=== PATIENT | male | born 1980 | race Caucasian/White ===

== ENCOUNTER 2016-10-21 16:00 | Emergency (ER) | payer OTHER ==
[2016-10-21 16:16] VITALS: BP 137/65; PULSE 88; RESP 18; TEMP 98.1
--- NOTE | 2016-10-21 17:43 | ED ---
General Adult HPI - General Chief complaint: Extremity Problem,Nontraumatic Stated complaint: Arm Weakness Time Seen by Provider: 10/21/16 17:08 Source: patient, RN notes reviewed Mode of arrival: ambulatory Limitations: no limitations - History of Present Illness Initial comments: This is a 36-year-old male presents with right elbow pain 1 month. 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 Patient denies any fall or trauma to the area. Patient states he's had some pain to the lateral aspect of the right elbow that shoots up the arm. Patient denies any neck pain, radicular pain, numbness or tingling. Patient admits to some weakness but associates this weakness with the pain he feels when he picks up something heavy. Patient denies any recent fever, chills, shortness breath, chest pain, abdominal pain, nausea/vomiting/diarrhea, back pain, hematuria, headache, or visual changes, or any other complaints. - Related Data Home Medications Medication Instructions Recorded Confirmed No Known Home Medications [No 04/28/16 10/21/16 Known Home Medications] Allergies Allergy/AdvReac Type Severity Reaction Status Date / Time No Known Allergies Allergy Verified 10/21/16 17:04 Review of Systems ROS Statement: Those systems with pertinent positive or pertinent negative responses have been documented in the HPI. ROS Other: All systems not noted in ROS Statement are negative. Past Medical History Past Medical History: No Reported History Additional Past Medical History / Comment(s): umbilical hernia History of Any Multi-Drug Resistant Organisms: None Reported Past Surgical History: Hernia Repair, Orthopedic Surgery Additional Past Surgical History / Comment(s): nasal surgery as a child.,ORIF rt ankle, UMBILICAL HERNIA Past Anesthesia/Blood Transfusion Reactions: No Reported Reaction Past Psychological History: No Psychological Hx Reported Smoking Status: Current every day smoker Past Alcohol Use History: Rare Additional Past Alcohol Use History / Comment(s): started smoking 1994 Past Drug Use History: None Reported - Past Family History Mother Family Medical History: Hypertension Brother(s) Family Medical History: Diabetes Mellitus, Hypertension Father Family Medical History: Diabetes Mellitus General Exam - General Exam Comments Initial Comments: General: The patient is awake and alert, in no distress, and does not appear acutely ill. Neck: The neck is supple, there is no tenderness or JVD. Cardiovascular: There is a regular rate and rhythm. No murmur, rub or gallop is appreciated. Respiratory: Lungs are clear to auscultation, respirations are non-labored, breath sounds are equal. No wheezes, stridor, rales, or rhonchi. Musculoskeletal: Patient is tender along the lateral aspect of the right elbow and proximal forearm. Patient's pain is exacerbated with resisted pronation and resisted extension of the right forearm. Full range of motion, strength 5/ 5 and Sensation intact. Radial pulses 2+ bilaterally. Normal Emanuel's Test. Neurological: A&O x 3. CN II-XII intact, There are no obvious motor or sensory deficits. Coordination appears grossly intact. Speech is normal. Skin: Skin is warm and dry and no rashes or lesions are noted. Psychiatric: Normal mood and affect. Limitations: no limitations Course Vital Signs 10/21/16 10/21/16 16:13 17:52 Temperature 98.1 F 98.1 F Pulse Rate 88 88 Respiratory 18 18 Rate Blood Pressure 137/65 137/65 O2 Sat by Pulse 97 97 Oximetry Medical Decision Making - Medical Decision Making This is a 36-year-old male with right elbow pain. On physical exam patient is tender along the lateral aspect of the right elbow and proximal forearm. Patient's pain is exacerbated with resisted pronation and resisted extension of the right forearm. Full range of motion, strength 5/5 and Sensation intact. Radial pulses 2+ bilaterally. Discussed with patient that this is most likely lateral epicondylitis. As patient has no shoulder pain, no neck pain. All the symptoms are consistent with lateral epicondylitis due to pain in the lateral aspect of the right forearm/right elbow with resisted pronation and resisted extension. Patient did not fall or have any trauma to this area. Discussed the patient will need a tennis elbow brace. I discussed [id number] anti- inflammatories, rest and ice. I discussed return parameters. patient had no weakness during exam strength was 5/5. Discussed that patient should follow up with PCP in one to 2 days or return to the [facility] for any worsening symptoms or for any further concerns. Patient was receptive to this plan and patient will be discharged home. I discussed his case with attending physician Dr. bray who agrees the plan as stated above. Disposition Clinical Impression: Lateral epicondylitis of right elbow Disposition: HOME SELF-CARE Condition: Good Instructions: Tennis Elbow (ED) Additional Instructions: Please rest, ice, elevate and use tennis elbow brace for support. Over the counter anti-inflammatories such as ibuprofen for pain. May also use Tylenol. Please follow-up with family doctor in the next 2 days of symptoms have not improved. Please return to emergency room if the symptoms increase or worsen or for any other concerns. Referrals: None,Stated [Primary Care Provider] - 1-2 days Time of Disposition: 17:42
== END 2016-10-21 17:52 | disposition home or self-care (01) ==
LOC: EC 16:00
DX: M77.11 Lateral epicondylitis, right elbow (principal); F17.200 Nicotine dependence, unspecified, uncomplicated
CPT/HCPCS: 99283

== ENCOUNTER 2017-01-09 07:01 | Emergency (ER) | payer OTHER ==
[2017-01-09 07:12] VITALS: BP 135/84; PULSE 73; RESP 17; TEMP 96.7
--- NOTE | 2017-01-09 07:40 | ED ---
General Adult HPI - General Chief complaint: Dental/Oral Stated complaint: Dental Pain Time Seen by Provider: 01/09/17 07:32 Source: patient, RN notes reviewed Mode of arrival: ambulatory Limitations: no limitations - History of Present Illness Initial comments: Patient is a pleasant 36-year-old male presenting to the emergency Department with dentalgia. Symptoms have been present for 5 or 6 days. Patient has discomfort left lower frontal tooth. Patient did go to the urgent care and received antibiotics and pain pills. Tylenol 3 has not been helping. Patient is also taking Motrin. No fever. No swelling. No history of problems with this tooth previously. Patient does have an appointment Wednesday with a dentist. - Related Data Previous Rx's Medication Instructions Recorded Hydrocodone/Acetaminophen [[place] 1 each PO Q4HR PRN #12 tab 01/09/17 5-325] Allergies Allergy/AdvReac Type Severity Reaction Status Date / Time No Known Allergies Allergy Verified 10/21/16 17:04 Review of Systems ROS Statement: Those systems with pertinent positive or pertinent negative responses have been documented in the HPI. ROS Other: All systems not noted in ROS Statement are negative. Constitutional: Denies: fever Eyes: Denies: eye pain ENT: Reports: dental pain. Denies: ear pain Respiratory: Denies: dyspnea Cardiovascular: Denies: chest pain Endocrine: Denies: fatigue Gastrointestinal: Denies: nausea Genitourinary: Denies: urgency Musculoskeletal: Denies: back pain Skin: Denies: rash Neurological: Denies: weakness Past Medical History Past Medical History: No Reported History Additional Past Medical History / Comment(s): umbilical hernia History of Any Multi-Drug Resistant Organisms: None Reported Past Surgical History: Hernia Repair, Orthopedic Surgery Additional Past Surgical History / Comment(s): nasal surgery as a child.,ORIF rt ankle, UMBILICAL HERNIA Past Anesthesia/Blood Transfusion Reactions: No Reported Reaction Past Psychological History: No Psychological Hx Reported Smoking Status: Current every day smoker Past Alcohol Use History: Rare Additional Past Alcohol Use History / Comment(s): started smoking 1994 Past Drug Use History: None Reported - Past Family History Mother Family Medical History: Hypertension Brother(s) Family Medical History: Diabetes Mellitus, Hypertension Father Family Medical History: Diabetes Mellitus General Exam Limitations: no limitations General appearance: alert, in no apparent distress Head exam: Present: atraumatic Eye exam: Present: normal appearance ENT exam: Present: other (Poor dentition. Tenderness to the left lower first premolar. No signs of erythema or swelling.) Neck exam: Present: normal inspection Respiratory exam: Present: normal lung sounds bilaterally Cardiovascular Exam: Present: regular rate, normal rhythm Extremities exam: Present: normal inspection Neurological exam: Present: alert Psychiatric exam: Present: normal affect, normal mood Skin exam: Absent: rash Course Vital Signs 01/09/17 07:08 Temperature 96.7 F L Pulse Rate 73 Respiratory 17 Rate Blood Pressure 135/84 O2 Sat by Pulse 97 Oximetry Disposition Clinical Impression: Dentalgia Disposition: HOME SELF-CARE Condition: Stable Instructions: Toothache (ED) Additional Instructions: Please follow-up with dentist Wednesday as planned. Return for swelling, fevers, redness, worsening symptoms or other concerns. Prescriptions: Hydrocodone/Acetaminophen [[place] 5-325] 1 each PO Q4HR PRN #12 tab PRN Reason: Pain Referrals: None,Stated [Primary Care Provider] - 1-2 days Alyson Teran III, MD [STAFF PHYSICIAN] - 1-2 days
== END 2017-01-09 07:45 | disposition home or self-care (01) ==
LOC: EC 07:01
DX: K08.89 Other specified disorders of teeth and supporting structures (principal); F17.200 Nicotine dependence, unspecified, uncomplicated
CPT/HCPCS: 99282

== ENCOUNTER 2018-09-18 06:07 | Emergency (ER) | payer OTHER ==
[2018-09-18 06:43] VITALS: BP 111/71; PULSE 96; RESP 18; TEMP 97.8
--- NOTE | 2018-09-18 08:12 | ED ---
General Adult HPI - General Chief complaint: Skin/Abscess/Foreign Body Stated complaint: Rash Time Seen by Provider: 09/18/18 07:48 Source: patient, RN notes reviewed Mode of arrival: ambulatory Limitations: no limitations - History of Present Illness Initial comments: Patient is a 38-year-old male presenting to the emergency room today with a chief complaint of a rash. He does admit that he's had a spot to the left foot over the last several months. Patient states is not using any medicines for this. States at times she's noticed that it's itchy. He is unsure if it was related to something at work. 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 He states at times bleach does splash up. He states he did not have response anywhere else. He states over the last 2 days she's noticed that he's had some spots now to his lower extremities bilaterally. Patient denies any other complaints. Patient denies any recent fever, chills, shortness of breath, chest pain, back pain, abdominal pain, nausea or vomiting, constipation or diarrhea, headaches or visual changes, or any other complaints. - Related Data Previous Rx's Medication Instructions Recorded Hydrocodone/Acetaminophen [[place] 1 each PO Q4HR PRN #12 tab 01/09/17 5-325] Cephalexin [Keflex] 500 mg PO Q12HR 10 Days cap 09/18/18 Hydrocortisone Cream 1 applic TOPICAL TID #1 cream..g. 09/18/18 [Hydrocortisone 1% Cream] diphenhydrAMINE [Benadryl] 1 - 2 tab PO Q6HR PRN #30 capsule 09/18/18 predniSONE 40 mg PO DAILY 5 Days tab 09/18/18 Allergies Allergy/AdvReac Type Severity Reaction Status Date / Time No Known Allergies Allergy Verified 09/18/18 06:43 Review of Systems ROS Statement: Those systems with pertinent positive or pertinent negative responses have been documented in the HPI. ROS Other: All systems not noted in ROS Statement are negative. Past Medical History Past Medical History: No Reported History Additional Past Medical History / Comment(s): umbilical hernia History of Any Multi-Drug Resistant Organisms: None Reported Past Surgical History: Hernia Repair, Orthopedic Surgery Additional Past Surgical History / Comment(s): nasal surgery as a child.,ORIF rt ankle, UMBILICAL HERNIA Past Anesthesia/Blood Transfusion Reactions: No Reported Reaction Past Psychological History: No Psychological Hx Reported Smoking Status: Current every day smoker Past Alcohol Use History: Rare Past Drug Use History: None Reported - Past Family History Mother Family Medical History: Hypertension Brother(s) Family Medical History: Diabetes Mellitus, Hypertension Father Family Medical History: Diabetes Mellitus General Exam - General Exam Comments Initial Comments: General: The patient is awake and alert, in no distress, and does not appear acutely ill. Eye: There is normal conjunctiva bilaterally. No signs of icterus. Ears, nose, mouth and throat: There are moist mucous membranes and no oral lesions. Neck: The neck is supple, there is no tenderness or JVD. Musculoskeletal: Normal ROM, no tenderness. Strength 5/5. Sensation intact. Pulses equal bilaterally 2+. Neurological: A&O x 3. CN II-XII intact, There are no obvious motor or sensory deficits. Coordination appears grossly intact. Speech is normal. Skin: Patient does have flattened red areas to the lower extremity's bilaterally. Mild redness. No streaking. No drainage. Psychiatric: Cooperative, appropriate mood & affect, normal judgment. Limitations: no limitations Course Vital Signs 09/18/18 06:40 Temperature 97.8 F Pulse Rate 96 Respiratory 18 Rate Blood Pressure 111/71 O2 Sat by Pulse 96 Oximetry Medical Decision Making - Medical Decision Making Was discussed with the patient about contact dermatitis. Patient will be placed on steroids. Patient also be given a prescription for antibiotics of Keflex to cover for possible infection. Patient advised follow family doctor/ dermatology coming week if symptoms are not improving. Advised return if symptoms increase worsen. Disposition Clinical Impression: Contact dermatitis Disposition: HOME SELF-CARE Condition: Good Instructions: Contact Dermatitis (ED) Additional Instructions: Please use medication as discussed. 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 Please return to emergency room if the symptoms increase or worsen or for any other concerns. Prescriptions: Cephalexin [Keflex] 500 mg PO Q12HR 10 Days cap diphenhydrAMINE [Benadryl] 1 - 2 tab PO Q6HR PRN #30 capsule PRN Reason: Allergic Reaction Hydrocortisone Cream [Hydrocortisone 1% Cream] 1 applic TOPICAL TID #1 cream..g. predniSONE 40 mg PO DAILY 5 Days tab Is patient prescribed a controlled substance at d/c from ED?: No Referrals: None,Stated [Primary Care Provider] - 1-2 days Cayla Carter MD [STAFF PHYSICIAN] - 1-2 days Time of Disposition: 08:11
== END 2018-09-18 08:33 | disposition home or self-care (01) ==
LOC: EC 06:07
DX: L25.9 Unspecified contact dermatitis, unspecified cause (principal); F17.200 Nicotine dependence, unspecified, uncomplicated
CPT/HCPCS: 99282

== ENCOUNTER 2020-05-26 22:12 | Emergency (ER) | payer OTHER ==
--- NOTE | 2020-05-27 01:08 | US ---
EXAMINATION TYPE: US venous doppler duplex LE RT DATE OF EXAM: 05/27/2020 12:58 AM COMPARISON: NONE CLINICAL HISTORY: Right leg swelling, calf pain. Swelling. No hx DVT. No injury. SIDE PERFORMED: Right TECHNIQUE: The lower extremity deep venous system is examined utilizing real time linear array sonog leti with graded compression, doppler sonography and color-flow sonography. VESSELS IMAGED: External Iliac Vein (EIV) Common Femoral Vein Deep Femoral Vein Greater Saphenous Vein * Femoral Vein Popliteal Vein Small Saphenous Vein * Proximal Calf Veins (* superficial vessels) Right Leg: Negative for DVT IMPRESSION: No evidence of right leg deep vein thrombosis.
--- NOTE | 2020-05-27 01:15 | ED ---
Extremity Problem HPI - General Chief complaint: Extremity Problem,Nontraumatic Stated complaint: Feet Swelling Time Seen by Provider: 05/27/20 00:18 Source: patient Mode of arrival: ambulatory Limitations: no limitations - History of Present Illness Initial comments: 40-year-old male patient presents to the emergency department today for evaluation of swelling to the right lower extremity. Patient states that for the last several days he has been experiencing increased swelling to the right leg. States that he is also having a cramping sensation in the calf. States he's been keeping it elevated for the last couple of days and the swelling has improved somewhat. He denies any recent long car rides. Denies recent injury to the leg. Denies any history of DVT or use of hormonal medications. Patient states that the leg feels tight and does hurt when he ambulates. He denies any chest pain or shortness of breath. Denies palpitations. States that he is otherwise healthy does not take any medications. Does not see a primary care physician. He does have some swelling to the left leg but states this is chronic due to a remote injury. - Related Data Previous Rx's Medication Instructions Recorded Hydrocodone/Acetaminophen [[place] 1 each PO Q4HR PRN #12 tab 01/09/17 5-325] Cephalexin [Keflex] 500 mg PO Q12HR 10 Days cap 09/18/18 Hydrocortisone Cream 1 applic TOPICAL TID #1 cream..g. 09/18/18 [Hydrocortisone 1% Cream] diphenhydrAMINE [Benadryl] 1 - 2 tab PO Q6HR PRN #30 capsule 09/18/18 predniSONE [Deltasone] 40 mg PO DAILY 5 Days tab 09/18/18 Allergies Allergy/AdvReac Type Severity Reaction Status Date / Time No Known Allergies Allergy Verified 09/18/18 06:43 Review of Systems ROS Statement: Those systems with pertinent positive or pertinent negative responses have been documented in the HPI. ROS Other: All systems not noted in ROS Statement are negative. Past Medical History Past Medical History: No Reported History Additional Past Medical History / Comment(s): umbilical hernia History of Any Multi-Drug Resistant Organisms: None Reported Past Surgical History: Hernia Repair, Orthopedic Surgery Additional Past Surgical History / Comment(s): nasal surgery as a child.,ORIF rt ankle, UMBILICAL HERNIA Past Anesthesia/Blood Transfusion Reactions: No Reported Reaction Past Psychological History: No Psychological Hx Reported Past Alcohol Use History: Rare Past Drug Use History: None Reported - Past Family History Mother Family Medical History: Hypertension Brother(s) Family Medical History: Diabetes Mellitus, Hypertension Father Family Medical History: Diabetes Mellitus General Exam Limitations: no limitations General appearance: alert, in no apparent distress, other (This is a well- developed, well-nourished adult male patient in no acute distress. Vital signs upon presentation are temperature 98.5F, pulse 101, respirations 18, blood pressure 110/72, pulse ox 98% on room air.) Respiratory exam: Present: normal lung sounds bilaterally. Absent: respiratory distress, wheezes, rales, rhonchi, stridor Cardiovascular Exam: Present: regular rate, normal rhythm, normal heart sounds. Absent: systolic murmur, diastolic murmur, rubs, gallop, clicks GI/Abdominal exam: Present: soft, normal bowel sounds. Absent: distended, tenderness, guarding, rebound, rigid Extremities exam: Present: normal inspection, full ROM, normal capillary refill, other (There is generalized nonpitting edema noted to the right lower extrem ity. There is mild calf tenderness. No overlying erythema. Pedal and posttibial pulses 2+ and equal bilaterally. Skin is pink, warm, and dry. Refill less than 3 seconds). Absent: tenderness, pedal edema, joint swelling, calf tenderness Course Vital Signs 05/26/20 05/26/20 05/27/20 22:29 23:33 01:18 Temperature 98.5 F 97.9 F Pulse Rate 101 H 90 Respiratory 18 20 18 Rate Blood Pressure 110/72 139/72 O2 Sat by Pulse 98 99 Oximetry Medical Decision Making - Medical Decision Making 40-year-old male patient presented to the emergency department today for evaluation of right lower extremity edema. Patient had no injury. Physical examination revealed generalized nonpitting edema to the right lower extremity. No overlying erythema. Pulses and neurovascular status are intact. Ultrasound of the leg was obtained and was negative for DVT. We did discuss findings and results. We did discuss diet and duration of time on his feet at work as causes for his symptoms. He is instructed to elevate the legs and use compression stockings for symptoms relief. He will discharged to follow-up with the primary care physician for recheck in 1-2 days. Return parameters discussed in detail. He verbalizes understanding and agrees with this plan - Radiology Data Radiology results: report reviewed, image reviewed Ultrasound venous Doppler duplex of the right lower extremity was obtained. Report reviewed in its entirety. Impression by Dr. Hurley shows no evidence of right leg deep vein thrombosis. Disposition Clinical Impression: Swelling of lower extremity Disposition: HOME SELF-CARE Condition: Good Instructions (If sedation given, give patient instructions): Leg Edema (ED) Additional Instructions: Keep legs elevated. Follow-up with the primary care physician for recheck in 1- 2 days. Return to the emergency department immediately for any new, worsening, or concerning symptoms. Is patient prescribed a controlled substance at d/c from ED?: No Referrals: Darinel Bhakta [STAFF PHYSICIAN] - 1-2 days Time of Disposition: 01:15
[2020-05-27 01:24] VITALS: BP 139/72; PULSE 90; RESP 18; TEMP 97.9
== END 2020-05-27 01:37 | disposition home or self-care (01) ==
LOC: EC 22:12
DX: M79.89 Other specified soft tissue disorders (principal); Z98.890 Other specified postprocedural states
CPT/HCPCS: 99283

== ENCOUNTER 2020-06-13 13:00 | Emergency (ER) | payer OTHER ==
[2020-06-13 13:13] VITALS: TEMP 97.5
[2020-06-13] MEDS ORDERED: ONDANSETRON 4 MG/2 ML VIAL IVP STA (13:35)
[2020-06-13] MEDS ORDERED: SODIUM CHLORIDE 0.9% 1,000 ML IV STA (13:35)
--- NOTE | 2020-06-13 13:35 | ED ---
Abdominal Pain HPI - General Chief Complaint: Abdominal Pain Stated Complaint: Back and groin pain Time Seen by Provider: 06/13/20 13:35 Source: patient Mode of arrival: wheelchair Limitations: no limitations - History of Present Illness Initial Comments: Patient is 40-year-old male presenting to emergency department with a chief complaint of groin and back pain. Patient reports the symptoms began yesterday but have somewhat improved since yesterday. Patient reports the pain is exacerbated whenever he is straining. States she also felt a dull testicular pain particularly on his right side. Patient states his testicle was swollen yesterday but not today. Denies any nausea vomiting diarrhea. Denies any constipation. States he is able to as gas without issues. Denies previous history of inguinal hernia. Does have surgical history of umbilical hernia repair. - Related Data Home Medications Medication Instructions Recorded Confirmed No Known Home Medications 06/13/20 06/13/20 Allergies Allergy/AdvReac Type Severity Reaction Status Date / Time No Known Allergies Allergy Verified 06/13/20 14:22 Review of Systems ROS Statement: Those systems with pertinent positive or pertinent negative responses have been documented in the HPI. ROS Other: All systems not noted in ROS Statement are negative. Past Medical History Past Medical History: No Reported History Additional Past Medical History / Comment(s): umbilical hernia History of Any Multi-Drug Resistant Organisms: None Reported Past Surgical History: Hernia Repair, Orthopedic Surgery Additional Past Surgical History / Comment(s): nasal surgery as a child.,ORIF rt ankle, UMBILICAL HERNIA Past Anesthesia/Blood Transfusion Reactions: No Reported Reaction Past Psychological History: No Psychological Hx Reported Smoking Status: Current every day smoker Past Alcohol Use History: Rare Past Drug Use History: None Reported - Past Family History Mother Family Medical History: Hypertension Brother(s) Family Medical History: Diabetes Mellitus, Hypertension Father Family Medical History: Diabetes Mellitus General Exam Limitations: no limitations General appearance: alert, in no apparent distress, obese Head exam: Present: atraumatic, normocephalic, normal inspection Eye exam: Present: normal appearance, PERRL, EOMI Pupils: Present: normal accommodation ENT exam: Present: normal exam, normal oropharynx, mucous membranes moist, TM's normal bilaterally, normal external ear exam Neck exam: Present: normal inspection, full ROM. Absent: tenderness Respiratory exam: Present: normal lung sounds bilaterally. Absent: respiratory distress, wheezes, rales Cardiovascular Exam: Present: regular rate, normal rhythm, normal heart sounds GI/Abdominal exam: Present: soft, tenderness (Right inguinal pain. No palpable masses.). Absent: distended, guarding, rebound, rigid exam: Present: normal inspection. Absent: testicular tenderness, urethral discharge, scrotal swelling Extremities exam: Present: normal inspection, full ROM. Absent: tenderness Back exam: Present: normal inspection, full ROM. Absent: tenderness, CVA tenderness (R), CVA tenderness (L) Neurological exam: Present: alert, oriented X3, normal gait Psychiatric exam: Present: normal affect, normal mood Skin exam: Present: warm, dry, intact, normal color Course Vital Signs 06/13/20 06/13/20 06/13/20 13:10 14:29 16:32 Temperature 97.5 F L Pulse Rate 84 74 75 Respiratory 20 18 18 Rate Blood Pressure 114/77 119/68 127/54 O2 Sat by Pulse 97 99 99 Oximetry 06/13/20 17:40 Temperature Pulse Rate 77 Respiratory 18 Rate Blood Pressure 123/70 O2 Sat by Pulse 98 Oximetry Medical Decision Making - Medical Decision Making Patient is a 40-year-old male presenting to emergency Department with a chief complaint of right groin abdominal pain. On physical examination, I do suspect a concern for right inguinal hernia. Patient was offered analgesia, he declined initially. There is no testicular swelling or tenderness at this time. Although, he has been experiencing dull, achy testicular pain. Right groin ultrasound reveals scattered area of shotty adenopathy. No diagnostic evidence of a hernia. CT was recommended. CT reveals no signs of a hernia. also examined the patient advised for follow-up with a general surgeon. Strict return parameters were thoroughly discussed with patient was understanding and agreeable. Case discussed with physician. - Lab Data Result diagrams: 06/13/20 13:41 06/13/20 13:41 Lab Results 06/13/20 06/13/20 06/13/20 Range/Units 13:41 13:41 13:41 WBC 11.2 H (3.8-10.6) k/uL RBC 4.77 (4.30-5.90) m/uL Hgb 13.1 (13.0-17.5) gm/dL Hct 41.0 (39.0-53.0) % MCV 86.0 (80.0-100.0) fL MCH 27.4 (25.0-35.0) pg MCHC 31.9 (31.0-37.0) g/dL RDW 13.3 (11.5-15.5) % Plt Count 320 (150-450) k/uL Neutrophils % 69 % Lymphocytes % 21 % Monocytes % 6 % Eosinophils % 2 % Basophils % 0 % Neutrophils # 7.7 (1.3-7.7) k/uL Lymphocytes # 2.4 (1.0-4.8) k/uL Monocytes # 0.6 (0-1.0) k/uL Eosinophils # 0.2 (0-0.7) k/uL Basophils # 0.0 (0-0.2) k/uL Sodium 137 (137-145) mmol/L Potassium 4.0 (3.5-5.1) mmol/L Chloride 106 (98-107) mmol/L Carbon Dioxide 26 (22-30) mmol/L Anion Gap 5 mmol/L BUN 11 (9-20) mg/dL Creatinine 0.67 (0.66-1.25) mg/dL Est GFR (CKD-EPI)AfAm >90 (>60 ml/min/1.73 sqM) Est GFR (CKD-EPI)NonAf >90 (>60 ml/min/1.73 sqM) Glucose 110 H (74-99) mg/dL Calcium 9.0 (8.4-10.2) mg/dL Total Bilirubin 0.3 (0.2-1.3) mg/dL AST 32 (17-59) U/L ALT 40 (4-49) U/L Alkaline Phosphatase 88 (38-126) U/L Total Protein 7.0 (6.3-8.2) g/dL Albumin 3.8 (3.5-5.0) g/dL Amylase 37 (30-110) U/L Lipase 74 (23-300) U/L Urine Color Yellow Urine Appearance Clear (Clear) Urine pH 6.5 (5.0-8.0) Ur Specific [place] 1.018 (1.001-1.035) Urine Protein Negative (Negative) Urine Glucose (UA) Negative (Negative) Urine Ketones Negative (Negative) Urine Blood Negative (Negative) Urine Nitrite Negative (Negative) Urine Bilirubin Negative (Negative) Urine Urobilinogen <2.0 (<2.0) mg/dL Ur Leukocyte Esterase Negative (Negative) Disposition Clinical Impression: Abdominal pain, Right groin pain Disposition: HOME SELF-CARE Condition: Stable Instructions (If sedation given, give patient instructions): Groin Pain (ED) Additional Instructions: Follow-up with a general surgeon. Return to emergency department if symptoms worsen. Is patient prescribed a controlled substance at d/c from ED?: No Referrals: None,Stated [Primary Care Provider] - 1-2 days Clifford Dunn MD [Medical Doctor] - 1-2 days Time of Disposition: 17:16
[2020-06-13 14:09] LABS: Basophils % (A) 0 %; Eosinophils # (A) 0.2 k/uL (0-0.7); Eosinophils % (A) 2 %; HGB 13.1 gm/dL (13.0-17.5); Lymphocytes # (A) 2.4 k/uL (1.0-4.8); Lymphocytes % (A) 21 %; MCH 27.4 pg (25.0-35.0); MCHC 31.9 g/dL (31.0-37.0); Mean Platelet Volume 6.9; Monocytes # (A) 0.6 k/uL (0-1.0); Monocytes % (A) 6 %; Neutrophils # (A) 7.7 k/uL (1.3-7.7); Neutrophils % (A) 69 %; Platelet Count 320 k/uL (150-450); RBC 4.77 m/uL (4.30-5.90); RDW 13.3 % (11.5-15.5); WBC 11.2 k/uL (3.8-10.6)
[2020-06-13 14:19] LABS: ALT 40 U/L (4-49); AST 32 U/L (17-59); African American GFR (CKD) >90 (>60 ml/min/1.73 sqM); Albumin 3.8 g/dL (3.5-5.0); Alkaline Phosphatase 88 U/L (38-126); Amylase 37 U/L (30-110); Anion Gap 5 mmol/L; Blood Urea Nitrogen 11 mg/dL (9-20); Carbon Dioxide 26 mmol/L (22-30); Chloride 106 mmol/L (98-107); Glucose 110 mg/dL (74-99); Non-African American GFR(CKD) >90 (>60 ml/min/1.73 sqM); Sodium 137 mmol/L (137-145); Total Bilirubin 0.3 mg/dL (0.2-1.3)
[2020-06-13 14:30] VITALS: RESP 18
[2020-06-13 14:43] LABS: Appearance,Urine Clear (Clear); Bilirubin,Urine Negative (Negative); Blood,Urine Negative (Negative); Color,Urine Yellow; Glucose,Urine (UA) Negative (Negative); Ketones,Urine Negative (Negative); Leukocyte Esterase,Urine Negative (Negative); Nitrite,Urine Negative (Negative); PH, Urine 6.5 (5.0-8.0); Protein,Urine Negative (Negative); Specific Gravity,Urine 1.018 (1.001-1.035); Urobilinogen,Urine <2.0 mg/dL (<2.0)
--- NOTE | 2020-06-13 15:03 | US ---
EXAMINATION TYPE: US groin RT DATE OF EXAM: 06/13/2020 COMPARISON: NONE CLINICAL HISTORY: direcet vs indirect hernia. Right groin pain. No injury per patient. Right groin scanned. Prominent lymph nodes seen. Unable to determine presence of hernia. Valsalva performed. Contralateral images taken. IMPRESSION: 1. Scattered areas of shotty adenopathy. No diagnostic evidence of a hernia by ultrasound. Correlate with CT scan as clinically warranted.
--- NOTE | 2020-06-13 16:57 | CT ---
EXAMINATION TYPE: CT abdomen pelvis wo con DATE OF EXAM: 06/13/2020 COMPARISON: 05/21/2016 HISTORY: Right flank and groin pain. CT DLP: 2016.4 mGycm Automated exposure control for dose reduction was used. Lung bases are clear. There is no pleural effusion. Heart size is normal. There is no pericardial eff usion. Liver spleen pancreas gallbladder stomach appear intact. Bile ducts are not dilated. There is no adrenal mass. Kidneys have normal size. There is no hydronephrosis. Ureters are not dilat ed. There is no retroperitoneal adenopathy. Bladder distends smoothly. There is no inguinal hernia. T here is no free fluid in the pelvis. Appendix is posterior and appears normal. There is no mesenteric edema. There is no ascites or free air. There is no bowel obstruction. Lumbar vertebra have normal alignment. There is mild posterior disc bulging at L4-5. The bony pelvis is intact. Hip joints are intact. 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 IMPRESSION: No acute abnormality of the abdomen pelvis. There is clearing of the minimal atelectasis at the right lung base compared to old exam. Normal appendix. No evidence of renal stone or obstruction.
[2020-06-13] MEDS ORDERED: KETOROLAC 15 MG/ML 1 ML VIAL IVP STA (17:19)
[2020-06-13 17:42] VITALS: BP 123/70; PULSE 77
== END 2020-06-13 17:41 | disposition home or self-care (01) ==
LOC: EC 13:00
DX: R10.31 Right lower quadrant pain (principal); N50.811 Right testicular pain; R59.9 Enlarged lymph nodes, unspecified; F17.200 Nicotine dependence, unspecified, uncomplicated
CPT/HCPCS: 36415; 80053; 82150; 83690; 85025; 81003; 76882; 74176; 96374; 96361 ×4; 99284; J1885

== ENCOUNTER 2021-02-09 18:36 | Emergency (ER) | payer OTHER ==
[2021-02-09 18:40] VITALS: TEMP 97.9
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
[2021-02-09] MEDS ORDERED: SODIUM CHLORIDE 0.9% 1,000 ML IV ONE (19:04)
[2021-02-09] MEDS ORDERED: HYDROmorphone 1 MG/ML 1 ML SYRINGE IVP STA (19:05)
[2021-02-09 19:41] LABS: Basophils # (A) 0.1 k/uL (0-0.2); Basophils % (A) 0 %; Eosinophils # (A) 0.2 k/uL (0-0.7); Eosinophils % (A) 1 %; HCT 40.8 % (39.0-53.0); HGB 13.7 gm/dL (13.0-17.5); Lymphocytes # (A) 2.1 k/uL (1.0-4.8); Lymphocytes % (A) 10 %; MCH 28.6 pg (25.0-35.0); MCHC 33.6 g/dL (31.0-37.0); Mean Platelet Volume 6.8; Monocytes # (A) 0.9 k/uL (0-1.0); Monocytes % (A) 5 %; Neutrophils # (A) 16.5 k/uL (1.3-7.7); Neutrophils % (A) 83 %; Platelet Count 340 k/uL (150-450); RDW 13.6 % (11.5-15.5); WBC 19.9 k/uL (3.8-10.6)
[2021-02-09 19:50] LABS: ALT 43 U/L (4-49); AST 36 U/L (17-59); African American GFR (CKD) >90 (>60 ml/min/1.73 sqM); Albumin 4.3 g/dL (3.5-5.0); Alcohol <10 mg/dL; Alkaline Phosphatase 96 U/L (38-126); Anion Gap 7 mmol/L; Blood Urea Nitrogen 11 mg/dL (9-20); Calcium 9.6 mg/dL (8.4-10.2); Carbon Dioxide 28 mmol/L (22-30); Chloride 103 mmol/L (98-107); Glucose 119 mg/dL (74-99); Non-African American GFR(CKD) >90 (>60 ml/min/1.73 sqM); Potassium 4.3 mmol/L (3.5-5.1); Sodium 138 mmol/L (137-145); Total Bilirubin 0.4 mg/dL (0.2-1.3); Total Protein 7.4 g/dL (6.3-8.2)
--- NOTE | 2021-02-09 20:06 | XR ---
EXAMINATION TYPE: XR chest 1V portable DATE OF EXAM: 02/09/2021 COMPARISON: April 28, 2016 HISTORY: Pain after fall TECHNIQUE: Single view FINDINGS: There is no heart failure nor confluent pneumonic infiltrate. Costophrenic angles are clear . There is no pleural effusion or pneumothorax. IMPRESSION: No active cardiopulmonary disease. No change.
[2021-02-09 20:19] LABS: INR 0.9 (<1.2); Partial Thromboplastin Time 20.5 sec (22.0-30.0); Prothrombin Time 9.8 sec (9.0-12.0)
[2021-02-09 20:21] LABS: Appearance,Urine Clear (Clear); Bilirubin,Urine Negative (Negative); Blood,Urine Negative (Negative); Color,Urine Yellow; Glucose,Urine (UA) Negative (Negative); Ketones,Urine Negative (Negative); Leukocyte Esterase,Urine Negative (Negative); Nitrite,Urine Negative (Negative); Protein,Urine Trace (Negative); Specific Gravity,Urine 1.041 (1.001-1.035); Urobilinogen,Urine <2.0 mg/dL (<2.0)
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
[2021-02-09 20:31] LABS: Amphetamine Screen,Urine Not Detected (NotDetected); Barbiturate Screen,Urine Not Detected (NotDetected); Benzodiazepines Screen,Urine Not Detected (NotDetected); Cocaine Screen,Urine Not Detected (NotDetected); Methadone Screen, Urine Not Detected (NotDetected); Opiate Screen,Urine Not Detected (NotDetected); Oxycodone Screen, Urine Not Detected (NotDetected); Phencyclidine Screen,Urine Not Detected (NotDetected); Tricyclic Antidepressant,Urine Not Detected (NotDetected); Urn Cannabinoid Scrn Not Detected (NotDetected)
[2021-02-09 21:04] VITALS: BP 129/75; PULSE 84; RESP 16
== END 2021-02-09 21:15 | disposition home or self-care (01) ==
LOC: EC 18:36
DX: S20.222A Contusion of left back wall of thorax, initial encounter (principal); F17.200 Nicotine dependence, unspecified, uncomplicated; W17.89XA Other fall from one level to another, initial encounter
CPT/HCPCS: 36415; 86900; 86901; 80053; 85025; 85610; 85730; 86850; 81003; 80306; 71045; 71260; 74177; 99284; 96374; 96361; G0480; J1170; Q9967; 80320

== ENCOUNTER 2021-02-12 13:04 | Emergency (ER) | payer OTHER ==
[2021-02-12 13:20] VITALS: RESP 18; TEMP 97.9
[2021-02-12] MEDS ORDERED: KETOROLAC 15 MG/ML 1 ML VIAL IM STA (14:32)
--- NOTE | 2021-02-12 14:35 | XR ---
EXAMINATION TYPE: PA chest and bilateral rib series, 9 views DATE OF EXAM: 02/12/2021 COMPARISON: 02/09/2021 HISTORY: 40-year-old male pain and shortness of breath TECHNIQUE: PA and lateral views FINDINGS: Heart limits of normal in size. Peribronchial cuffing and interstitial prominence unchanged from prio r. No pleural effusion. No displaced rib fracture on either side. IMPRESSION: Correlate with patient's symptoms to exclude underlying bronchitis, chronic asthma, or early atypical pneumonia. No displaced rib fracture seen on either side.
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
[2021-02-12 15:31] VITALS: BP 123/74; PULSE 74
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
[2021-02-12] MEDS ORDERED: ACET/COD 300 MG/30 MG STARTER PACK 6 TAB BTL PO STA (16:27)
== END 2021-02-12 16:34 | disposition home or self-care (01) ==
LOC: EC 13:04
DX: S29.011A Strain of muscle and tendon of front wall of thorax, initial encounter (principal); R10.12 Left upper quadrant pain; F17.200 Nicotine dependence, unspecified, uncomplicated; V86.55XA Driver of 3- or 4- wheeled all-terrain vehicle (ATV) injured in nontraffic accident, initial encounter; Y92.410 Unspecified street and highway as the place of occurrence of the external cause
CPT/HCPCS: 71111; 76705; 76770; 99284; 96372; J1885

== ENCOUNTER → 2021-04-24 | Outpatient (CLI) | payer OTHER ==
--- NOTE | 2021-04-24 12:11 | XR ---
EXAMINATION TYPE: XR chest 2V DATE OF EXAM: 04/24/2021 COMPARISON: 02/09/2021 TECHNIQUE: PA and lateral views submitted. HISTORY: Pleural effusion FINDINGS: Bilateral pleural thickening with subsegmental changes involving the left upper and lower lobe. Heart size stable. No overt failure or pneumothorax. IMPRESSION: 1. Bilateral pleural thickening with left upper lobe and lower lobe subsegmental atelectasis or scarr ing
--- NOTE | 2021-04-24 12:12 | XR ---
EXAMINATION TYPE: XR shoulder limited LT DATE OF EXAM: 04/24/2021 COMPARISON: NONE HISTORY: Pain TECHNIQUE: Three views are submitted. FINDINGS: The osseous structures are intact. There is no acute fracture or dislocation. The AC joint is maint ained. Subsegmental linear changes left upper lobe with a pleural-based thickening. Likely in the ba sis of scar or atelectasis. IMPRESSION: 1. No acute process.
== END | disposition home or self-care (01) ==
LOC: RADXRMAIN 11:40
PROVIDERS: ATTEND Family Medicine
DX: J92.9 Pleural plaque without asbestos (principal); M25.512 Pain in left shoulder
CPT/HCPCS: 71046

== ENCOUNTER → 2021-09-09 | Outpatient (CLI) | payer OTHER ==
--- NOTE | 2021-09-09 09:49 | XR ---
EXAMINATION TYPE: XR chest 2V DATE OF EXAM: 09/09/2021 COMPARISON: Chest x-ray 04/24/2021 HISTORY: J92.9 pleural plaque without asbestos TECHNIQUE: Frontal and lateral views of the chest are obtained. FINDINGS: There is no focal air space opacity, pleural effusion, or pneumothorax seen. The cardiac silhouette size is within normal limits. The osseous structures are intact. Bilateral pleural thick ening along the lateral chest margins is again seen. IMPRESSION: Findings are similar to prior exam. Pleural thickening may be better evaluated with ches t CT.
== END | disposition home or self-care (01) ==
LOC: RADXRMAIN 09:12
PROVIDERS: ATTEND Family Medicine
DX: J92.9 Pleural plaque without asbestos (principal)
CPT/HCPCS: 71046

== ENCOUNTER → 2021-10-12 | Outpatient (CLI) | payer OTHER ==
--- NOTE | 2021-10-12 08:32 | CT ---
EXAMINATION TYPE: CT chest wo con DATE OF EXAM: 10/12/2021 COMPARISON: 02/09/2021 HISTORY: Pleural plaque w/o asbestos CT DLP: 1054 mGycm. Automated Exposure Control for Dose Reduction was Utilized. TECHNIQUE: CT scan of the thorax is performed without IV contrast. FINDINGS: LUNGS: The lungs are grossly clear, there is no concerning parenchymal mass or nodule identified. T here is no pleural effusion or pneumothorax seen. The tracheobronchial tree is patent. There are mil d areas of smooth pleural thickening without nodularity or calcification. MEDIASTINUM: Lack of IV contrast is noted to limit evaluation for mediastinal and especially hilar ad enopathy. There are no definitive greater than 1 cm hilar or mediastinal lymph nodes. No cardiomega ly or pericardial effusion is seen. OTHER: No additional significant abnormality is seen. IMPRESSION: Mild areas of pleural thickening without calcification or nodularity. No other significan t abnormality seen.
== END | disposition home or self-care (01) ==
LOC: RADCTMAIN 07:39
PROVIDERS: ATTEND Family Medicine
DX: J92.9 Pleural plaque without asbestos (principal)
CPT/HCPCS: 71250

== ENCOUNTER → 2022-05-12 | Outpatient (CLI) | payer OTHER ==
--- NOTE | 2022-05-13 07:20 | XR ---
EXAMINATION TYPE: XR chest 2V DATE OF EXAM: 05/12/2022 4:36 PM COMPARISON: Chest radiographs from 09/09/2021, CT chest 10/12/2021. TECHNIQUE: XR chest 2V Frontal and lateral views of the chest. CLINICAL INDICATION:Male, 42 years old with history of R06.00 Dyspnea; FINDINGS: Lungs/Pleura: There is no evidence of pleural effusion, focal consolidation, or pneumothorax. Similar bilateral pleural thickening on the lateral chest margins. Pulmonary vascularity: Unremarkable. Heart/mediastinum: Cardiomediastinal silhouette is unremarkable. Musculoskeletal: No acute osseous pathology. IMPRESSION: Similar mild areas of pleural thickening without evidence of acute cardiopulmonary process.
== END | disposition home or self-care (01) ==
LOC: RADXRMAIN 16:23
PROVIDERS: ATTEND Nurse Practitioner Family
DX: J92.9 Pleural plaque without asbestos (principal)
CPT/HCPCS: 71046

== ENCOUNTER 2022-06-11 05:07 | Inpatient (IN) | payer OTHER ==
[2022-06-11] MEDS ORDERED: MORPHINE SULFATE 4 MG/ML SYRINGE IVP STA (05:23)
[2022-06-11] MEDS ORDERED: SODIUM CHLORIDE 0.9% 500 ML 500 ML IV ONE (05:23)
[2022-06-11] MEDS ORDERED: cefTRIAXone IN SWFI 1,000 MG/10 ML SYRINGE IVP STA (05:26)
--- NOTE | 2022-06-11 05:51 | ED ---
General Adult HPI - General Chief complaint: Skin/Abscess/Foreign Body Stated complaint: Cellulitis right leg Time Seen by Provider: 06/11/22 05:09 Source: patient, RN notes reviewed, old records reviewed Mode of arrival: wheelchair Limitations: no limitations - History of Present Illness Initial comments: 42-year-old male presents for evaluation of right leg pain and swelling. Patient was recently admitted to outside hospital for about one week with right leg cellulitis. He states he went home on oral antibiotics but has continued pain and swelling and increased erythema. He is a nondiabetic. He's had no measured fever at home. - Related Data Previous Rx's Medication Instructions Recorded Cyclobenzaprine [Flexeril] 10 mg PO TID #20 tab 02/12/21 Ketorolac [Toradol] 10 mg PO Q6HR #15 tab 02/12/21 Allergies Allergy/AdvReac Type Severity Reaction Status Date / Time No Known Allergies Allergy Verified 06/11/22 05:12 Review of Systems ROS Statement: Those systems with pertinent positive or pertinent negative responses have been documented in the HPI. ROS Other: All systems not noted in ROS Statement are negative. Past Medical History Past Medical History: No Reported History Additional Past Medical History / Comment(s): umbilical hernia History of Any Multi-Drug Resistant Organisms: None Reported Past Surgical History: Hernia Repair, Orthopedic Surgery Additional Past Surgical History / Comment(s): nasal surgery as a child.,ORIF rt ankle, UMBILICAL HERNIA Past Anesthesia/Blood Transfusion Reactions: No Reported Reaction Past Psychological History: No Psychological Hx Reported Smoking Status: Current every day smoker Past Alcohol Use History: None Reported Past Drug Use History: None Reported - Past Family History Mother Family Medical History: Hypertension Brother(s) Family Medical History: Diabetes Mellitus, Hypertension Father Family Medical History: Diabetes Mellitus General Exam Limitations: no limitations General appearance: alert, in no apparent distress Head exam: Present: atraumatic, normocephalic Eye exam: Present: normal appearance, PERRL ENT exam: Present: mucous membranes dry Neck exam: Present: normal inspection Respiratory exam: Present: normal lung sounds bilaterally. Absent: respiratory distress, wheezes Cardiovascular Exam: Present: normal rhythm, tachycardia GI/Abdominal exam: Present: soft. Absent: distended, tenderness, guarding Extremities exam: Present: pedal edema, other (erythema, warmth, soft tissue swelling throughout the right lower extremity from the foot to the knee, no crepitus) Course Vital Signs 06/11/22 05:12 Temperature 98.2 F Pulse Rate 105 H Respiratory 16 Rate Blood Pressure 133/79 O2 Sat by Pulse 98 Oximetry Medical Decision Making - Medical Decision Making 42-year-old male for reevaluation of right leg cellulitis. His cellulitis is quite extensive, painful to the touch. There is warmth and erythema. Patient is afebrile but tachycardic upon arrival. Antibiotics are initiated after blood culture and laboratory tests are obtained. White blood cell count of 18. patient will be admitted to internal medicine with infectious disease on consult for recurrent cellulitis. - Lab Data Result diagrams: 06/11/22 06:00 Lab Results 06/11/22 Range/Units 06:00 WBC 18.0 H (3.8-10.6) k/uL RBC 4.15 L (4.30-5.90) m/uL Hgb 11.3 L (13.0-17.5) gm/dL Hct 36.2 L (39.0-53.0) % MCV 87.2 (80.0-100.0) fL MCH 27.2 (25.0-35.0) pg MCHC 31.2 (31.0-37.0) g/dL RDW 14.0 (11.5-15.5) % Plt Count 435 (150-450) k/uL MPV 7.1 Neutrophils % 79 % Lymphocytes % 13 % Monocytes % 6 % Eosinophils % 1 % Basophils % 0 % Neutrophils # 14.2 H (1.3-7.7) k/uL Lymphocytes # 2.4 (1.0-4.8) k/uL Monocytes # 1.0 (0-1.0) k/uL Eosinophils # 0.2 (0-0.7) k/uL Basophils # 0.1 (0-0.2) k/uL Disposition Clinical Impression: Cellulitis Disposition: ADMITTED IP TO THIS HOSP Condition: Stable Is patient prescribed a controlled substance at d/c from ED?: No Referrals: Carlos Turk DO [Primary Care Provider] - 1-2 days Time of Disposition: 05:51
[2022-06-11] MEDS ORDERED: ACETAMINOPHEN TAB 325 MG TAB PO PRN (05:52)
[2022-06-11] MEDS ORDERED: NALOXONE 0.4 MG/ML 1 ML VIAL IV PRN ×2 (05:52→11:25)
[2022-06-11] MEDS ORDERED: VANCOMYCIN IV PER PHARMACY 1 EACH MISC MISCELLANE PRN (06:14)
[2022-06-11 06:25] LABS: Basophils # (A) 0.1 k/uL (0-0.2); Basophils % (A) 0 %; Eosinophils # (A) 0.2 k/uL (0-0.7); Eosinophils % (A) 1 %; HCT 36.2 % (39.0-53.0); HGB 11.3 gm/dL (13.0-17.5); Lymphocytes # (A) 2.4 k/uL (1.0-4.8); Lymphocytes % (A) 13 %; MCH 27.2 pg (25.0-35.0); MCHC 31.2 g/dL (31.0-37.0); MCV 87.2 fL (80.0-100.0); Mean Platelet Volume 7.1; Monocytes % (A) 6 %; Neutrophils # (A) 14.2 k/uL (1.3-7.7); Neutrophils % (A) 79 %; Platelet Count 435 k/uL (150-450); RBC 4.15 m/uL (4.30-5.90)
[2022-06-11] MEDS ORDERED: PIPERACILLIN-TAZOBACTAM 3.375 GM in SODIUM CHLORIDE 0.9% 100 ML IVPB STA (06:32)
[2022-06-11 06:34] LABS: Partial Thromboplastin Time 24.4 sec (22.0-30.0); Prothrombin Time 10.5 sec (9.0-12.0)
[2022-06-11] MEDS ORDERED: VANCOMYCIN 2,250 MG in SODIUM CHLORIDE 0.9% 500 ML 500 ML IVPB ONE (07:00)
[2022-06-11 07:01] LABS: ALT 40 U/L (4-49); AST 33 U/L (17-59); African American GFR (CKD) >90 (>60 ml/min/1.73 sqM); Albumin 3.4 g/dL (3.5-5.0); Alkaline Phosphatase 86 U/L (38-126); Anion Gap 12 mmol/L; Blood Urea Nitrogen 8 mg/dL (9-20); Calcium 8.8 mg/dL (8.4-10.2); Carbon Dioxide 24 mmol/L (22-30); Chloride 101 mmol/L (98-107); Glucose 139 mg/dL (74-99); Non-African American GFR(CKD) >90 (>60 ml/min/1.73 sqM); Potassium 4.2 mmol/L (3.5-5.1); Sodium 137 mmol/L (137-145); Total Bilirubin 0.5 mg/dL (0.2-1.3); Total Protein 7.4 g/dL (6.3-8.2)
[2022-06-11] MEDS: SODIUM CHLORIDE 0.9% 1,000 ML IV SCH ×3 (09:15→20:30)
--- NOTE | 2022-06-11 09:17 | US ---
EXAMINATION TYPE: US venous doppler duplex LE RT DATE OF EXAM: 06/11/2022 9:08 AM COMPARISON: Right lower extremity venous ultrasound report May 27, 2020. Downtime so direct correl ation not possible. CLINICAL HISTORY: rt lower extremity erythema. Right calf redness. Failed outpatient cellulitis reza tment. SIDE PERFORMED: Right TECHNIQUE: The lower extremity deep venous system is examined utilizing real time linear array sonog leti with graded compression, doppler sonography and color-flow sonography. VESSELS IMAGED: Common Femoral Vein Deep Femoral Vein Greater Saphenous Vein * Femoral Vein Popliteal Vein Small Saphenous Vein * Proximal Calf Veins- limited visualization (* superficial vessels) Right Leg: Negative for DVT Grayscale, color doppler, spectral doppler imaging performed of the deep veins of the right lower ext remity. There is normal flow, compressibility, vascular waveforms. IMPRESSION: No ultrasound evidence for acute DVT in the right lower extremity. Enlarged right groin lymph nodes are present and presumed reactive. Follow-up advised if does not resolve.
--- NOTE | 2022-06-11 11:24 | P.HPIM ---
History of Present Illness H&P Date: 06/11/22 Chief Complaint: Right lower extremity redness History of present illness; Patient is a 42-year-old gentleman with no significant past medical history who presented to the ER because of right leg pain and swelling. Patient was recently admitted at [facility] and was treated with IV antibiotics for a week and discharged on oral Keflex. Patient stated that couple of days after discharge she started noticing worsening right lower leg pain and swelling. Denied any fever or chills. Patient denied any weeping of his right leg. Because his worsening right leg pain and swelling, he came to the ER of [facility]. Initial blood work done showed patient to have elevated white count of 18k. Patient was started on IV antibiotics and was admitted to medicine team. REVIEW OF SYSTEMS: CONSTITUTIONAL: No fever, no malaise, no fatigue. HEENT: No recent visual problems or hearing problems. Denied any sore throat. CARDIOVASCULAR: No chest pain, orthopnea, PND, no palpitations, no syncope. PULMONARY: No shortness of breath, no cough, no hemoptysis. GASTROINTESTINAL: No diarrhea, no nausea, no vomiting, no abdominal pain. NEUROLOGICAL: No headaches, no weakness, no numbness. HEMATOLOGICAL: Denies any bleeding or petechiae. GENITOURINARY: Denies any burning micturition, frequency, or urgency. MUSCULOSKELETAL/RHEUMATOLOGICAL: Denies any joint pain,. Complaining of right leg pain and swelling ENDOCRINE: Denies any polyuria or polydipsia. The rest of the 14-point review of systems is negative. PHYSICAL EXAMINATION: GENERAL: The patient is alert and oriented x3, not in any acute distress. Well developed, well nourished. HEENT: Pupils are round and equally reacting to light. EOMI. No scleral icterus. No conjunctival pallor. Normocephalic, atraumatic. No pharyngeal erythema. No thyromegaly. CARDIOVASCULAR: S1 and S2 present. No murmurs, rubs, or gallops. PULMONARY: Chest is clear to auscultation, no wheezing or crackles. ABDOMEN: Soft, nontender, nondistended, normoactive bowel sounds. No palpable organomegaly. MUSCULOSKELETAL: No joint swelling or deformity. EXTREMITIES: No cyanosis,. Right lower extremity erythema seen, NEUROLOGICAL: Gross neurological examination did not reveal any focal deficits. SKIN: No rashes. Assessment Right lower extremity cellulitis Leukocytosis Obesity Plan; Monitor vital signs Monitor CBC ordered blood cultures Our ultrasound of right lower extremity Continue IV vancomycin Consult ID Daily labs DVT prophylaxis: Past Medical History Past Medical History: No Reported History Additional Past Medical History / Comment(s): umbilical hernia History of Any Multi-Drug Resistant Organisms: None Reported Past Surgical History: Hernia Repair, Orthopedic Surgery Additional Past Surgical History / Comment(s): nasal surgery as a child.,ORIF rt ankle, UMBILICAL HERNIA Past Anesthesia/Blood Transfusion Reactions: No Reported Reaction Past Psychological History: No Psychological Hx Reported Smoking Status: Current every day smoker Past Alcohol Use History: None Reported Past Drug Use History: None Reported - Past Family History Mother Family Medical History: Hypertension Brother(s) Family Medical History: Diabetes Mellitus, Hypertension Father Family Medical History: Diabetes Mellitus Medications and Allergies Home Medications Medication Instructions Recorded Confirmed Type Cephalexin [Keflex] 500 mg PO Q6HR 06/11/22 06/11/22 History Allergies Allergy/AdvReac Type Severity Reaction Status Date / Time No Known Allergies Allergy Verified 06/11/22 06:40 Physical Exam Vitals: Vital Signs Temp Pulse Pulse Resp BP BP Pulse Ox 06/11/22 08:35 98.1 F 82 22 115/69 97 06/11/22 08:00 82 22 06/11/22 07:10 74 15 129/69 99 06/11/22 05:12 98.2 F 105 H 16 133/79 98 Intake and Output 06/10/22 06/11/22 06/11/22 22:59 06:59 14:59 Other: Voiding Method Toilet Weight 145.15 kg Results CBC & Chem 7: 06/11/22 06:00 06/11/22 06:00 Labs: Abnormal Lab Results - Last 24 Hours (Table) 06/11/22 06/11/22 Range/Units 06:00 06:00 WBC 18.0 H (3.8-10.6) k/uL RBC 4.15 L (4.30-5.90) m/uL Hgb 11.3 L (13.0-17.5) gm/dL Hct 36.2 L (39.0-53.0) % Neutrophils # 14.2 H (1.3-7.7) k/uL BUN 8 L (9-20) mg/dL Glucose 139 H (74-99) mg/dL Albumin 3.4 L (3.5-5.0) g/dL
[2022-06-11] MEDS: MORPHINE SULFATE 4 MG/ML SYRINGE IV PRN ×2 (11:30→18:50)
[2022-06-11] MEDS: HYDROcodone/APAP 5-325MG 1 EACH TAB PO PRN ×2 (15:11→20:30)
[2022-06-11] MEDS: VANCOMYCIN 2,000 MG in SODIUM CHLORIDE 0.9% 500 ML 500 ML IVPB SCH (20:25)
--- NOTE | 2022-06-11 23:15 | P.CONS ---
History of Present Illness - Reason for Consult Consult date: 06/11/22 - History of Present Illness Patient is a 42-year male who was recently admitted at [facility] and the patient was treated for right lower extremity cellulitis patient was stabilized and subsequently discharged home on oral Keflex patient now presenting to the [facility] with increasing swelling redness right lower extremity along with pain patient denies high-grade fever or any chills has been complaining of pain to be more of a sharp in nature intensity is about 7 out of 10 no radiation with associated swelling redness patient currently do not have any open wound or any drainage patient on presentation to the hospital was afebrile and no fever have been recorded subsequently patient did have white count of 18,000 with a left shift patient did have a lower extremity Doppler which was negative for DVT patient was started on vancomycin has been admitted to hospital infectious disease was consulted for further management of antibiotic therapy Past Medical History Past Medical History: No Reported History Additional Past Medical History / Comment(s): umbilical hernia History of Any Multi-Drug Resistant Organisms: None Reported Past Surgical History: Hernia Repair, Orthopedic Surgery Additional Past Surgical History / Comment(s): nasal surgery as a child.,ORIF rt ankle, UMBILICAL HERNIA Past Anesthesia/Blood Transfusion Reactions: No Reported Reaction Past Psychological History: No Psychological Hx Reported Smoking Status: Current every day smoker Past Alcohol Use History: None Reported Past Drug Use History: None Reported - Past Family History Mother Family Medical History: Hypertension Brother(s) Family Medical History: Diabetes Mellitus, Hypertension Father Family Medical History: Diabetes Mellitus Medications and Allergies Home Medications Medication Instructions Recorded Confirmed Type Cephalexin [Keflex] 500 mg PO Q6HR 06/11/22 06/11/22 History Allergies Allergy/AdvReac Type Severity Reaction Status Date / Time No Known Allergies Allergy Verified 06/11/22 06:40 Physical Exam Vitals: Vital Signs Temp Pulse Pulse Resp BP BP Pulse Ox 06/11/22 08:35 98.1 F 82 22 115/69 97 06/11/22 07:10 74 15 129/69 99 06/11/22 05:12 98.2 F 105 H 16 133/79 98 Intake and Output 06/10/22 06/11/22 06/11/22 22:59 06:59 14:59 Other: Weight 145.15 kg Results CBC & Chem 7: 06/11/22 06:00 06/11/22 06:00 Labs: Abnormal Lab Results - Last 24 Hours (Table) 06/11/22 06/11/22 Range/Units 06:00 06:00 WBC 18.0 H (3.8-10.6) k/uL RBC 4.15 L (4.30-5.90) m/uL Hgb 11.3 L (13.0-17.5) gm/dL Hct 36.2 L (39.0-53.0) % Neutrophils # 14.2 H (1.3-7.7) k/uL BUN 8 L (9-20) mg/dL Glucose 139 H (74-99) mg/dL Albumin 3.4 L (3.5-5.0) g/dL Assessment and Plan Plan: 1patient presented to hospital with right lower extremity cellulitis failing outpatient oral Keflex therapy question of possible community associated MRSA. 2patient to continue vancomycin pharmacy to dose, in view of failure of oral Keflex patient may need outpatient antibiotic therapy on discharge this was discussed with the rn case management. We will follow on clinical condition and cultures to further adjust medication if needed Thank you for this consultation will follow this patient along with you Time with Patient: Greater than 30
[2022-06-12] MEDS: VANCOMYCIN 2,000 MG in SODIUM CHLORIDE 0.9% 500 ML 500 ML IVPB SCH ×2 (03:37→11:18)
[2022-06-12] MEDS: HYDROcodone/APAP 5-325MG 1 EACH TAB PO PRN ×3 (03:37→21:15)
[2022-06-12 05:03] LABS: African American GFR (CKD) >90 (>60 ml/min/1.73 sqM); Non-African American GFR(CKD) >90 (>60 ml/min/1.73 sqM)
[2022-06-12] MEDS: SODIUM CHLORIDE 0.9% 1,000 ML IV SCH ×3 (06:05→22:25)
[2022-06-12] MEDS: MORPHINE SULFATE 4 MG/ML SYRINGE IV PRN (07:13)
[2022-06-12] MEDS ORDERED: VANCOMYCIN TROUGH DUE 1 EACH MISC MISCELLANE ONE (18:00)
--- NOTE | 2022-06-12 22:42 | P.PN ---
Subjective Progress Note Date: 06/12/22 Principal diagnosis: Right lower extremity cellulitis Patient is a 42-year-old male recently admitted at [facility] with right lower extremity cellulitis stabilized discharged home on oral Keflex subsequently presented to medical Hospital with worsening swelling and redness admitted to hospital with cellulitis failing outpatient therapy. On today's evaluation that is and 06/12/2022, the patient denies having any fever or any chills, the patient still has significant swelling and redness right lower extremity mention no improvement in the symptoms, patient denies having any chest pain shortness of breath or cough no abdominal pain or diarrhea Objective - Vital Signs Vital signs: Vital Signs Temp 98.3 F 06/12/22 07:00 Pulse 89 06/12/22 07:00 Resp 22 06/12/22 07:00 BP 121/64 06/12/22 07:00 Pulse Ox 95 06/12/22 07:00 FiO2 Intake & Output 06/11/22 06/12/22 06/12/22 18:59 06:59 18:59 Intake Total 300 180 Balance 300 180 Weight 145.15 kg Intake: Oral 300 180 Other: Voiding Method Toilet Toilet # Voids 3 2 - Exam GENERAL DESCRIPTION: Middle-age male lying in bed in no distress RESPIRATORY SYSTEM: Unlabored breathing , decreased breath sounds at bases HEART: S1 S2 regular rate and rhythm , ABDOMEN: Soft , no tenderness EXTREMITIES: Right lower extremity with diffuse swelling and redness no open wound or any drainage - Labs CBC & Chem 7: 06/11/22 06:00 06/12/22 04:37 Labs: Abnormal Lab Results - Last 24 Hours (Table) 06/12/22 Range/Units 04:42 Hemoglobin A1c 7.0 H (0.0-6.0) % Microbiology - Last 24 Hours (Table) 06/11/22 06:00 Blood Culture - Preliminary Blood No Growth after 24 hours Assessment and Plan (1) Cellulitis Current Visit: Yes Status: Acute Code(s): L03.90 - CELLULITIS, UNSPECIFIED SNOMED Code(s): 507155624 Plan: 1patient presented to hospital with right lower extremity cellulitis failing outpatient oral Keflex therapy question of possible community associated MRSA. 2patient did not show improvement with vancomycin over the last 24 hour antibiotic will be switched over to daptomycin will repeat a CBC and extremity markers with a.m. lab
[2022-06-13] MEDS: HYDROcodone/APAP 5-325MG 1 EACH TAB PO PRN ×4 (02:49→20:27)
[2022-06-13] MEDS: SODIUM CHLORIDE 0.9% 1,000 ML IV SCH ×3 (05:54→23:22)
[2022-06-13] MEDS: MORPHINE SULFATE 4 MG/ML SYRINGE IV PRN (06:08)
[2022-06-13 10:02] LABS: African American GFR (CKD) 144.7 (60.0-200.0); Anion Gap 8.7 mmol/L (10.00-18.00); BUN/Creat Ratio 12.5 Ratio (12.00-20.00); Blood Urea Nitrogen 7.5 mg/dL (9.0-27.0); C Reactive Protein 10.9 mg/dL (0.00-0.80); Calcium 8.7 mg/dL (8.7-10.3); Carbon Dioxide 26.3 mmol/L (20.0-27.5); Non-African American GFR(CKD) 124.9 (60.0-200.0); Potassium 4.3 mmol/L (3.5-5.5)
[2022-06-13 10:09] LABS: Basophils # (A) 0.05 X 10*3/uL (0.00-0.10); Basophils % (A) 0.4 %; Eosinophils # (A) 0.21 X 10*3/uL (0.04-0.35); Eosinophils % (A) 1.9 %; HCT 33.4 % (39.6-50.0); HGB 10.4 g/dL (13.0-17.0); Immature Grans, Automated 0.8 %; Lymphocytes # (A) 2.17 X 10*3/uL (0.90-5.00); Lymphocytes % (A) 19.4 %; MCH 27.4 pg (27.0-32.0); MCHC 31.1 g/dL (32.0-37.0); MCV 87.9 fL (80.0-97.0); Mean Platelet Volume 9.4 fL (9.5-12.2); Monocytes # (A) 0.88 X 10*3/uL (0.20-1.00); Monocytes % (A) 7.9 %; NRBC Per 100 WBC 0 /100 WBCS (0.0-0.0); Neutrophils # (A) 7.77 X 10*3/uL (1.80-7.70); Neutrophils % (A) 69.6 %; Platelet Count 412 X 10*3/uL (140-440); RDW 14.7 % (11.5-14.5); WBC 11.17 X 10*3/uL (4.50-10.00)
--- NOTE | 2022-06-13 12:12 | P.PN ---
Subjective Progress Note Date: 06/12/22 42-year-old gentleman with no significant past medical history who presented to the ER because of right leg pain and swelling. Patient was recently admitted at [facility] and was treated with IV antibiotics for a week and discharged on oral Keflex. Patient stated that couple of days after discharge she started noticing worsening right lower leg pain and swelling. Denied any fever or chills. Patient denied any weeping of his right leg. Because his worsening right leg pain and swelling, he came to the ER of [facility]. Initial blood work done showed patient to have elevated white count of 18k. Patient was started on IV antibiotics and was admitted to medicine team. Objective - Vital Signs Vital signs: Vital Signs Temp 98.3 F 06/12/22 07:00 Pulse 89 06/12/22 07:00 Resp 22 06/12/22 07:00 BP 121/64 06/12/22 07:00 Pulse Ox 95 06/12/22 07:00 FiO2 Intake & Output 06/11/22 06/12/22 06/12/22 18:59 06:59 18:59 Intake Total 300 180 Balance 300 180 Weight 145.15 kg Intake: Oral 300 180 Other: Voiding Method Toilet Toilet # Voids 3 2 - Exam GENERAL: The patient is alert and oriented x3, not in any acute distress. Well developed, well nourished. HEENT: Pupils are round and equally reacting to light. EOMI. No scleral icterus. No conjunctival pallor. Normocephalic, atraumatic. No pharyngeal erythema. No thyromegaly. CARDIOVASCULAR: S1 and S2 present. No murmurs, rubs, or gallops. PULMONARY: Chest is clear to auscultation, no wheezing or crackles. ABDOMEN: Soft, nontender, nondistended, normoactive bowel sounds. No palpable organomegaly. MUSCULOSKELETAL: No joint swelling or deformity. EXTREMITIES: No cyanosis,. Right lower extremity erythema seen, NEUROLOGICAL: Gross neurological examination did not reveal any focal deficits. SKIN: No rashes. - Labs CBC & Chem 7: 06/13/22 04:39 06/13/22 04:39 Labs: Abnormal Lab Results - Last 24 Hours (Table) 06/12/22 Range/Units 04:42 Hemoglobin A1c 7.0 H (0.0-6.0) % Microbiology - Last 24 Hours (Table) 06/11/22 06:00 Blood Culture - Preliminary Blood No Growth after 24 hours Assessment and Plan Assessment: Right lower extremity cellulitis Leukocytosis Obesity Plan; Monitor vital signs Monitor CBC ordered blood cultures Our ultrasound of right lower extremity Continue IV vancomycin Consult ID Daily labs
--- NOTE | 2022-06-13 12:28 | P.PN ---
Subjective Progress Note Date: 06/13/22 Principal diagnosis: Severe cellulitis right lower extremity Uncontrolled pain right lower extremity Acute on chronic anemia 42-year-old gentleman with no significant past medical history who presented to the ER because of right leg pain and swelling. Patient was recently admitted at [facility] and was treated with IV antibiotics for a week and discharged on oral Keflex. Patient stated that couple of days after discharge she started noticing worsening right lower leg pain and swelling. Denied any fever or chills. Patient denied any weeping of his right leg. Because his worsening right leg pain and swelling, he came to the ER of [facility]. Initial blood work done showed patient to have elevated white count of 18k. Patient was started on IV antibiotics and was admitted to medicine team. 06/13/2022 Patient is seen and evaluated in the room at bedside; denies having any fever or any chills, the patient still has significant swelling and redness right lower extremity mention no improvement in the symptoms, patient denies having any chest pain shortness of breath or cough no abdominal pain or diarrhea Labs are reviewed; WBC improved from 18.0 on admission down to 11.7, hemoglobin trended down to 11.3 on admission down to 10.4; no complaining of dark stools or rectal bleed Patient ID and has been switched to IV daptomycin since patient did not have clinical improvement in the past 24 hours - We will plan to place patient on Protonix, order stool occult blood; continue with current plan at this time; we will continue to monitor CBC, CMP and pro- calcitonin Objective - Vital Signs Vital signs: Vital Signs Temp 97.9 F 06/13/22 07:00 Pulse 88 06/13/22 07:00 Resp 16 06/13/22 07:00 BP 117/72 06/13/22 07:00 Pulse Ox 96 06/13/22 07:00 FiO2 Intake & Output 06/12/22 06/13/22 06/13/22 18:59 06:59 18:59 Intake Total 1520 118 Balance 1520 118 Intake: Intake, IV Titration 1340 Amount DAPTOmycin 400 mg In 50 Sodium Chloride 0.9% 50 ml @ 100 mls/hr IVPB Q24HR [facility] Rx#:[id number] Sodium Chloride 0.9% 1, 1040 000 ml @ 130 mls/hr IV . Q7H42M [facility] Rx#:[id number] Vancomycin 2,000 mg In 250 Sodium Chloride 0.9% 500 ml 500 ml @ 167 mls/hr IVPB Q8H [facility] Rx#: [id number] Oral 180 118 Other: # Voids 3 - Exam GENERAL: The patient is alert and oriented x3, not in any acute distress. Well developed, well nourished. HEENT: Pupils are round and equally reacting to light. EOMI. No scleral icterus. No conjunctival pallor. Normocephalic, atraumatic. No pharyngeal erythema. No thyromegaly. CARDIOVASCULAR: S1 and S2 present. No murmurs, rubs, or gallops. PULMONARY: Chest is clear to auscultation, no wheezing or crackles. ABDOMEN: Soft, nontender, nondistended, normoactive bowel sounds. No palpable organomegaly. MUSCULOSKELETAL: No joint swelling or deformity. EXTREMITIES: No cyanosis,. Right lower extremity erythema seen, NEUROLOGICAL: Gross neurological examination did not reveal any focal deficits. SKIN: No rashes. - Labs CBC & Chem 7: 06/13/22 04:39 06/13/22 04:39 Labs: Abnormal Lab Results - Last 24 Hours (Table) 06/13/22 06/13/22 Range/Units 04:39 04:39 WBC 11.17 H (4.50-10.00) X 10*3/uL RBC 3.80 L (4.40-5.60) X 10*6/uL Hgb 10.4 L (13.0-17.0) g/dL Hct 33.4 L (39.6-50.0) % MCHC 31.1 L (32.0-37.0) g/dL RDW 14.7 H (11.5-14.5) % MPV 9.4 L (9.5-12.2) fL Immature Gran # 0.09 H (0.00-0.04) X 10*3/uL Neutrophils # 7.77 H (1.80-7.70) X 10*3/uL Anion Gap 8.70 L (10.00-18.00) mmol/L BUN 7.5 L (9.0-27.0) mg/dL C-Reactive Protein 10.90 H (0.00-0.80) mg/dL Microbiology - Last 24 Hours (Table) 06/11/22 06:00 Blood Culture - Preliminary Blood No Growth after 48 hours Assessment and Plan Assessment: Right lower extremity cellulitis Leukocytosis Obesity Plan; Monitor vital signs Monitor CBC ordered blood cultures Our ultrasound of right lower extremity Continue IV vancomycin Consult ID Daily labs
--- NOTE | 2022-06-13 15:40 | P.PN ---
Subjective Progress Note Date: 06/13/22 Principal diagnosis: Right lower extremity cellulitis Patient is a 42-year-old male recently admitted at [facility] with right lower extremity cellulitis stabilized discharged home on oral Keflex subsequently presented to medical Hospital with worsening swelling and redness admitted to hospital with cellulitis failing outpatient therapy. On today's evaluation that is 06/13/2022, the patient continues to be afebrile, the patient is breathing comfortably on room air, the patient right lower extremity swelling and redness has decreased in intensity compared to yesterday, the patient denies having any chest pain shortness of breath or cough no abdomin al pain no diarrhea Objective - Vital Signs Vital signs: Vital Signs Temp 97.9 F 06/13/22 07:00 Pulse 88 06/13/22 07:00 Resp 16 06/13/22 07:00 BP 117/72 06/13/22 07:00 Pulse Ox 96 06/13/22 07:00 FiO2 Intake & Output 06/12/22 06/13/22 06/13/22 18:59 06:59 18:59 Intake Total 1520 118 Balance 1520 118 Intake: Intake, IV Titration 1340 Amount DAPTOmycin 400 mg In 50 Sodium Chloride 0.9% 50 ml @ 100 mls/hr IVPB Q24HR [facility] Rx#:[id number] Sodium Chloride 0.9% 1, 1040 000 ml @ 130 mls/hr IV . Q7H42M [facility] Rx#:[id number] Vancomycin 2,000 mg In 250 Sodium Chloride 0.9% 500 ml 500 ml @ 167 mls/hr IVPB Q8H [facility] Rx#: [id number] Oral 180 118 Other: # Voids 3 - Exam GENERAL DESCRIPTION: Middle-age male lying in bed in no distress RESPIRATORY SYSTEM: Unlabored breathing , decreased breath sounds at bases HEART: S1 S2 regular rate and rhythm , ABDOMEN: Soft , no tenderness EXTREMITIES: Right lower extremity swelling and redness has slightly decreased - Labs CBC & Chem 7: 06/13/22 04:39 06/13/22 04:39 Labs: Abnormal Lab Results - Last 24 Hours (Table) 06/13/22 06/13/22 Range/Units 04:39 04:39 WBC 11.17 H (4.50-10.00) X 10*3/uL RBC 3.80 L (4.40-5.60) X 10*6/uL Hgb 10.4 L (13.0-17.0) g/dL Hct 33.4 L (39.6-50.0) % MCHC 31.1 L (32.0-37.0) g/dL RDW 14.7 H (11.5-14.5) % MPV 9.4 L (9.5-12.2) fL Immature Gran # 0.09 H (0.00-0.04) X 10*3/uL Neutrophils # 7.77 H (1.80-7.70) X 10*3/uL Anion Gap 8.70 L (10.00-18.00) mmol/L BUN 7.5 L (9.0-27.0) mg/dL C-Reactive Protein 10.90 H (0.00-0.80) mg/dL Microbiology - Last 24 Hours (Table) 06/11/22 06:00 Blood Culture - Preliminary Blood No Growth after 48 hours Assessment and Plan (1) Cellulitis Current Visit: Yes Status: Acute Code(s): L03.90 - CELLULITIS, UNSPECIFIED SNOMED Code(s): 941031668 Plan: 1patient presented to hospital with right lower extremity cellulitis failing outpatient oral Keflex therapy question of possible community associated MRSA. 2patient seemed to have shown clinical improvement with daptomycin should be continued, plan is for midline on Wednesday and outpatient IV daptomycin 7-10 days depending upon clinical response Time with Patient: Less than 30
[2022-06-14] MEDS: HYDROcodone/APAP 5-325MG 1 EACH TAB PO PRN ×4 (01:24→20:47)
[2022-06-14] MEDS: SODIUM CHLORIDE 0.9% 1,000 ML IV SCH ×3 (05:45→15:57)
[2022-06-14 09:26] LABS: Basophils # (A) 0.04 X 10*3/uL (0.00-0.10); Basophils % (A) 0.4 %; Eosinophils # (A) 0.17 X 10*3/uL (0.04-0.35); Eosinophils % (A) 1.6 %; HCT 33.1 % (39.6-50.0); HGB 10.5 g/dL (13.0-17.0); Immature Grans, Automated 0.5 %; Lymphocytes # (A) 2.37 X 10*3/uL (0.90-5.00); Lymphocytes % (A) 22.9 %; MCH 27.3 pg (27.0-32.0); MCHC 31.7 g/dL (32.0-37.0); MCV 86.2 fL (80.0-97.0); Mean Platelet Volume 9.3 fL (9.5-12.2); Monocytes # (A) 0.76 X 10*3/uL (0.20-1.00); Monocytes % (A) 7.4 %; NRBC Per 100 WBC 0 /100 WBCS (0.0-0.0); Neutrophils # (A) 6.95 X 10*3/uL (1.80-7.70); Neutrophils % (A) 67.2 %; Platelet Count 440 X 10*3/uL (140-440); RBC 3.84 X 10*6/uL (4.40-5.60); RDW 14.5 % (11.5-14.5); WBC 10.34 X 10*3/uL (4.50-10.00)
[2022-06-14 09:43] LABS: African American GFR (CKD) 137.1 (60.0-200.0); Anion Gap 9.8 mmol/L (10.00-18.00); BUN/Creat Ratio 8.54 Ratio (12.00-20.00); Blood Urea Nitrogen 5.9 mg/dL (9.0-27.0); Carbon Dioxide 26.7 mmol/L (20.0-27.5); Non-African American GFR(CKD) 118.3 (60.0-200.0); Potassium 4.3 mmol/L (3.5-5.5)
[2022-06-14] MEDS ORDERED: FUROSEMIDE 10 MG/ML 4 ML VIAL IV STA (16:01)
--- NOTE | 2022-06-14 17:14 | P.PN ---
Subjective Progress Note Date: 06/14/22 Principal diagnosis: Right lower extremity cellulitis Patient is a 42-year-old male recently admitted at [facility] with right lower extremity cellulitis stabilized discharged home on oral Keflex subsequently presented to medical Hospital with worsening swelling and redness admitted to hospital with cellulitis failing outpatient therapy. On today's evaluation that is 06/14/2022, the patient remains to be afebrile, the patient is breathing comfortably on room air, the patient still have significant swelling to the right lower extremity redness is slightly decreased did not have any bone wound or any drainage denies any chest pain shortness of breath or cough no abdominal pain no diarrhea Objective - Vital Signs Vital signs: Vital Signs Temp 98.1 F 06/14/22 14:00 Pulse 90 06/14/22 14:00 Resp 18 06/14/22 14:00 BP 109/71 06/14/22 14:00 Pulse Ox 95 06/14/22 14:00 FiO2 Intake & Output 06/13/22 06/14/22 06/14/22 18:59 06:59 18:59 Intake Total 354 118 Balance 354 118 Intake: Oral 354 118 Other: # Voids 1 3 - Exam GENERAL DESCRIPTION: Middle-age male lying in bed in no distress RESPIRATORY SYSTEM: Unlabored breathing , decreased breath sounds at bases HEART: S1 S2 regular rate and rhythm , ABDOMEN: Soft , no tenderness EXTREMITIES: Right lower extremity swelling and redness has slightly decreased - Labs CBC & Chem 7: 06/14/22 05:34 06/14/22 05:34 Labs: Abnormal Lab Results - Last 24 Hours (Table) 06/14/22 06/14/22 Range/Units 05:34 05:34 WBC 10.34 H (4.50-10.00) X 10*3/uL RBC 3.84 L (4.40-5.60) X 10*6/uL Hgb 10.5 L (13.0-17.0) g/dL Hct 33.1 L (39.6-50.0) % MCHC 31.7 L (32.0-37.0) g/dL MPV 9.3 L (9.5-12.2) fL Immature Gran # 0.05 H (0.00-0.04) X 10*3/uL Anion Gap 9.80 L (10.00-18.00) mmol/L BUN 5.9 L (9.0-27.0) mg/dL BUN/Creatinine Ratio 8.54 L (12.00-20.00) Ratio Microbiology - Last 24 Hours (Table) 06/11/22 06:00 Blood Culture - Preliminary Blood No Growth after 72 hours Assessment and Plan (1) Cellulitis Current Visit: Yes Status: Acute Code(s): L03.90 - CELLULITIS, UNSPECIFIED SNOMED Code(s): 140721332 Plan: 1patient presented to hospital with right lower extremity cellulitis failing outpatient oral Keflex therapy question of possible community associated MRSA. 2patient did have significant swelling to the right leg more likely from the IV fluid the patient has been receiving for the last few days we will Hep-Lock his IV fluid given 1 dose of Lasix continue with the Samir wrap and daptomycin midline placement tomorrow for outpatient IV antibiotic Time with Patient: Less than 30
--- NOTE | 2022-06-14 18:32 | P.PN ---
Subjective Progress Note Date: 06/14/22 Principal diagnosis: Severe cellulitis right lower extremity Uncontrolled pain right lower extremity Acute on chronic anemia 42-year-old gentleman with no significant past medical history who presented to the ER because of right leg pain and swelling. Patient was recently admitted at [facility] and was treated with IV antibiotics for a week and discharged on oral Keflex. Patient stated that couple of days after discharge she started noticing worsening right lower leg pain and swelling. Denied any fever or chills. Patient denied any weeping of his right leg. Because his worsening right leg pain and swelling, he came to the ER of [facility]. Initial blood work done showed patient to have elevated white count of 18k. Patient was started on IV antibiotics and was admitted to medicine team. 06/13/2022 Patient is seen and evaluated in the room at bedside; denies having any fever or any chills, the patient still has significant swelling and redness right lower extremity mention no improvement in the symptoms, patient denies having any chest pain shortness of breath or cough no abdominal pain or diarrhea Labs are reviewed; WBC improved from 18.0 on admission down to 11.7, hemoglobin trended down to 11.3 on admission down to 10.4; no complaining of dark stools or rectal bleed Patient ID and has been switched to IV daptomycin since patient did not have clinical improvement in the past 24 hours - We will plan to place patient on Protonix, order stool occult blood; continue with current plan at this time; we will continue to monitor CBC, CMP and pro- calcitonin 06/14/2022 the patient remains to be afebrile, the patient is breathing comfortably on room air, the patient still have significant swelling to the right lower extremity redness is slightly decreased did not have any bone wound or any drainage denies any chest pain shortness of breath or cough no abdominal pain no diarrhea patient presented to hospital with right lower extremity cellulitis failing outpatient oral Keflex therapy question of possible community associated MRSA. patient did have significant swelling to the right leg more likely from the IV fluid the patient has been receiving for the last few days we will Hep-Lock his IV fluid given 1 dose of Lasix continue with the Samir wrap and daptomycin midline placement tomorrow for outpatient IV antibiotic Objective - Vital Signs Vital signs: Vital Signs Temp 98.0 F 06/14/22 08:00 Pulse 91 06/14/22 08:00 Resp 18 06/14/22 08:00 BP 111/77 06/14/22 08:00 Pulse Ox 95 06/14/22 08:00 FiO2 Intake & Output 06/13/22 06/14/22 06/14/22 18:59 06:59 18:59 Intake Total 354 118 Balance 354 118 Intake: Oral 354 118 Other: # Voids 1 3 - Exam GENERAL: The patient is alert and oriented x3, not in any acute distress. Well developed, well nourished. HEENT: Pupils are round and equally reacting to light. EOMI. No scleral icterus. No conjunctival pallor. Normocephalic, atraumatic. No pharyngeal erythema. No thyromegaly. CARDIOVASCULAR: S1 and S2 present. No murmurs, rubs, or gallops. PULMONARY: Chest is clear to auscultation, no wheezing or crackles. ABDOMEN: Soft, nontender, nondistended, normoactive bowel sounds. No palpable organomegaly. MUSCULOSKELETAL: No joint swelling or deformity. EXTREMITIES: No cyanosis,. Right lower extremity erythema seen, NEUROLOGICAL: Gross neurological examination did not reveal any focal deficits. SKIN: No rashes. - Labs CBC & Chem 7: 06/14/22 05:34 06/14/22 05:34 Labs: Abnormal Lab Results - Last 24 Hours (Table) 06/14/22 06/14/22 Range/Units 05:34 05:34 WBC 10.34 H (4.50-10.00) X 10*3/uL RBC 3.84 L (4.40-5.60) X 10*6/uL Hgb 10.5 L (13.0-17.0) g/dL Hct 33.1 L (39.6-50.0) % MCHC 31.7 L (32.0-37.0) g/dL MPV 9.3 L (9.5-12.2) fL Immature Gran # 0.05 H (0.00-0.04) X 10*3/uL Anion Gap 9.80 L (10.00-18.00) mmol/L BUN 5.9 L (9.0-27.0) mg/dL BUN/Creatinine Ratio 8.54 L (12.00-20.00) Ratio Microbiology - Last 24 Hours (Table) 06/11/22 06:00 Blood Culture - Preliminary Blood No Growth after 72 hours Assessment and Plan Assessment: Right lower extremity cellulitis Leukocytosis Obesity Plan; Monitor vital signs Monitor CBC ordered blood cultures Our ultrasound of right lower extremity Continue IV vancomycin Consult ID Daily labs
[2022-06-15] MEDS: HYDROcodone/APAP 5-325MG 1 EACH TAB PO PRN ×3 (01:51→12:04)
[2022-06-15 06:25] LABS: Basophils % (A) 0 %; Eosinophils # (A) 0.2 k/uL (0-0.7); Eosinophils % (A) 2 %; HCT 36.7 % (39.0-53.0); HGB 11.7 gm/dL (13.0-17.5); Hypochromasia Slight; Lymphocytes # (A) 2.3 k/uL (1.0-4.8); Lymphocytes % (A) 24 %; MCH 28.1 pg (25.0-35.0); MCHC 31.8 g/dL (31.0-37.0); MCV 88.5 fL (80.0-100.0); Monocytes # (A) 0.5 k/uL (0-1.0); Monocytes % (A) 5 %; Neutrophils # (A) 6.4 k/uL (1.3-7.7); Neutrophils % (A) 68 %; Platelet Count 553 k/uL (150-450); RBC 4.14 m/uL (4.30-5.90); WBC 9.4 k/uL (3.8-10.6)
[2022-06-15 07:23] LABS: African American GFR (CKD) >90 (>60 ml/min/1.73 sqM); Anion Gap 12 mmol/L; Blood Urea Nitrogen 10 mg/dL (9-20); Calcium 9.3 mg/dL (8.4-10.2); Carbon Dioxide 27 mmol/L (22-30); Chloride 99 mmol/L (98-107); Glucose 100 mg/dL (74-99); Non-African American GFR(CKD) >90 (>60 ml/min/1.73 sqM); Potassium 4.8 mmol/L (3.5-5.1); Sodium 138 mmol/L (137-145)
[2022-06-15 08:44] VITALS: BP 111/74; PULSE 82; RESP 18; TEMP 98
--- NOTE | 2022-06-15 12:55 | P.PN ---
Subjective Progress Note Date: 06/15/22 Principal diagnosis: Right lower extremity cellulitis Patient is a 42-year-old male recently admitted at [facility] with right lower extremity cellulitis stabilized discharged home on oral Keflex subsequently presented to medical Hospital with worsening swelling and redness admitted to hospital with cellulitis failing outpatient therapy. On today's evaluation that is 06/15/2022, the patient continues to be afebrile, the patient is breathing comfortably on room air, the patient right lower extremity swelling and redness has improved, the patient denies having any chest pain shortness of breath or cough no abdominal pain no diarrhea Objective - Vital Signs Vital signs: Vital Signs Temp 98.0 F 06/15/22 08:00 Pulse 82 06/15/22 08:00 Resp 18 06/15/22 08:00 BP 111/74 06/15/22 08:00 Pulse Ox 96 06/15/22 08:00 FiO2 Intake & Output 06/14/22 06/15/22 06/15/22 18:59 06:59 18:59 Intake Total 236 591 Balance 236 591 Intake: Oral 236 591 Other: Voiding Method Toilet # Voids 2 2 - Exam GENERAL DESCRIPTION: Middle-age male lying in bed in no distress RESPIRATORY SYSTEM: Unlabored breathing , decreased breath sounds at bases HEART: S1 S2 regular rate and rhythm , ABDOMEN: Soft , no tenderness EXTREMITIES: Right lower extremity swelling and redness has slightly decreased, no open wound or drainage - Labs CBC & Chem 7: 06/15/22 05:27 06/15/22 05:27 Labs: Abnormal Lab Results - Last 24 Hours (Table) 06/15/22 06/15/22 Range/Units 05:27 05:27 RBC 4.14 L (4.30-5.90) m/uL Hgb 11.7 L (13.0-17.5) gm/dL Hct 36.7 L (39.0-53.0) % Plt Count 553 H (150-450) k/uL Glucose 100 H (74-99) mg/dL Microbiology - Last 24 Hours (Table) 06/11/22 06:00 Blood Culture - Preliminary Blood No Growth after 96 hours Assessment and Plan (1) Cellulitis Current Visit: Yes Status: Acute Code(s): L03.90 - CELLULITIS, UNSPECIFIED SNOMED Code(s): 382330041 Plan: 1patient presented to hospital with right lower extremity cellulitis failing outpatient oral Keflex therapy question of possible community associated MRSA. 2patient right lower extremity swelling and redness has improved he will continue with IV daptomycin for another 10 days prescription was provided to the bottle caser midline and has been placed Time with Patient: Less than 30
--- NOTE | 2022-06-15 22:10 | P.DS ---
Providers Date of admission: 06/11/22 10:27 Attending physician: aDyami Branham Consults: 06/11/22 05:52 Consult Physician Routine Consulting Provider: Patricia Watson Consult Reason/Comments: Cellulitis Do you want consulting provider notified?: Yes Primary care physician: Carlos Turk [facility] Course: Diagnoses: Acute right leg cellulitis, improving morbid obesity with BMI of 48.7 Mild anemia, normochromic normocytic Hospital course: 42-year-old gentleman with no significant past medical history who presented to the ER because of right leg pain and swelling. Patient has been evaluated by infectious disease team, he was started on daptomycin, patient showed clinical interval improvement in his right leg cellulitis, patient also reports improvement. Patient denies any other complaints, no chest pain or dyspnea, no change in urine or bowel habits. No fever. Patient was cleared for discharge by ID team on 10 days of IV daptomycin. Midline was placed, hospice social worker consulted for discharge antibiotics Problems and management plan were discussed with the patient and he verbalized understanding and acceptance Patient was found stable and can be discharged home however he needs follow-up a s an outpatient. Patient was instructed to follow up with PCP Dr. Turk within one week and patient agrees Patient was instructed to follow up with Dr. Watson from infectious disease team in one week and patient agrees to perform a Appointments Physical exam Gen: patient is a AAOx3, no distress CVS: S1-S2, RRR, no murmur Lungs: B/L CTA, no wheezing Abdomen: soft, no distention, no tenderness, positive bowel sounds Extremity: no leg edema or induration. Improving right leg cellulitis Time spent more than 35 minutes Patient Condition at Discharge: Stable Plan - Discharge Summary Discharge Rx Participant: No New Discharge Prescriptions: New Acetaminophen Tab [Tylenol] 650 mg PO Q6HR PRN tab PRN Reason: Mild Pain Or Fever > 100.5 Discontinued Cephalexin [Keflex] 500 mg PO Q6HR Discharge Medication List Acetaminophen Tab [Tylenol] 650 mg PO Q6HR PRN tab 06/15/22 [Rx] Follow up Appointment(s)/Referral(s): [facility] [NON-STAFF] - 1 Week Carlos Turk DO [Primary Care Provider] - 1-2 days [facility], [REFERRING] - 1 Week Patricia Watson MD [STAFF PHYSICIAN] - 1 Week Patient Instructions/Handouts: Cellulitis (ED), Cellulitis (GEN) Activity/Diet/Wound Care/Special Instructions: Regular diet Activity is restricted till you see your doctor Discontinue midline once you are finished with your intravenous antibiotic Discharge Disposition: HOME WITH HOME HEALTH SERVICES
== END 2022-06-15 14:55 | disposition home health service (06) | DRG 603 ==
LOC: EC 05:07 → 6NMEDSUR 05:52 → OBSVTOIN 10:27
PROVIDERS: ADMIT Hospitalist; ATTEND Hospitalist
PROC: 05HF33Z Insertion of Infusion Device into Left Cephalic Vein, Percutaneous Approach (ICD-10-PCS; principal; 2022-06-15 14:50)
DX: L03.115 Cellulitis of right lower limb (principal); Z68.42 Body mass index [BMI] 45.0-49.9, adult; F17.200 Nicotine dependence, unspecified, uncomplicated; E66.01 Morbid (severe) obesity due to excess calories; D64.9 Anemia, unspecified; Z28.310 Unvaccinated for COVID-19; Z82.49 Family history of ischemic heart disease and other diseases of the circulatory system; Z83.3 Family history of diabetes mellitus
CPT/HCPCS: 36410; 36415; 76937; 80048; 80053; 82565; 83036; 83605; 85025; 85610; 85730; 86140; 87040; 96374; 96375; 99284

== ENCOUNTER 2023-02-02 07:41 | Emergency (ER) | payer OTHER ==
--- NOTE | 2023-02-02 08:17 | ED ---
Extremity Problem HPI - General Chief complaint: Extremity Problem,Nontraumatic Stated complaint: Lt foot swelling Time Seen by Provider: 02/02/23 07:58 Source: patient, RN notes reviewed Mode of arrival: ambulatory Limitations: no limitations - History of Present Illness Initial comments: Patient is a 42-year-old male presenting to the emergency room for evaluation of right lower extremity swelling. He reports chronic bilateral lower extremity swelling but is concerned regarding significant increase and right lower extremity swelling overnight with mild erythema in which she believes is due to swelling. He denies any pain, claudication, numbness or tingling. He denies any personal history of DVTs but does note family history of DVTs. He denies any recent travel or prolonged sedentary activity. He denies any recent trauma or wounds to his right lower extremity. He denies any other complaints or concerns including any chest pain, shortness of breath, abdominal pain, nausea, vomiting, headache, dizziness, fevers or chills. He does not have any significant past medical history with the exception of previously resolved right ankle fracture with ORIF. - Related Data Previous Rx's Medication Instructions Recorded Acetaminophen Tab [Tylenol] 650 mg PO Q6HR PRN tab 06/15/22 Allergies Allergy/AdvReac Type Severity Reaction Status Date / Time No Known Allergies Allergy Verified 02/02/23 07:49 Review of Systems ROS Statement: Those systems with pertinent positive or pertinent negative responses have been documented in the HPI. ROS Other: All systems not noted in ROS Statement are negative. Past Medical History Past Medical History: No Reported History Additional Past Medical History / Comment(s): umbilical hernia History of Any Multi-Drug Resistant Organisms: None Reported Past Surgical History: Hernia Repair, Orthopedic Surgery Additional Past Surgical History / Comment(s): nasal surgery as a child.,ORIF rt ankle, UMBILICAL HERNIA Past Anesthesia/Blood Transfusion Reactions: No Reported Reaction Past Psychological History: No Psychological Hx Reported Smoking Status: Current every day smoker Past Alcohol Use History: None Reported Past Drug Use History: None Reported - Past Family History Mother Family Medical History: Hypertension Brother(s) Family Medical History: Diabetes Mellitus, Hypertension Father Family Medical History: Diabetes Mellitus General Exam Limitations: no limitations General appearance: alert, in no apparent distress Head exam: Present: atraumatic, normocephalic, normal inspection Eye exam: Present: normal appearance, PERRL, EOMI. Absent: scleral icterus, conjunctival injection, periorbital swelling ENT exam: Present: normal exam, mucous membranes moist Neck exam: Present: normal inspection, full ROM Respiratory exam: Absent: respiratory distress, accessory muscle use Cardiovascular Exam: Present: regular rate GI/Abdominal exam: Absent: distended Extremities exam: Present: other (Large right inguinal lymph node with tenderness noted) Right Lower Leg exam: Present: full ROM, swelling, erythema (diffuse mild; no bright red induration). Absent: tenderness, laceration, ecchymosis, Homans' sign Back exam: Present: normal inspection Neurological exam: Present: alert, oriented X3, CN II-XII intact Psychiatric exam: Present: normal affect, normal mood Skin exam: Present: warm, dry, intact, erythema (right lower extremity as above) Course Vital Signs 02/02/23 02/02/23 02/02/23 07:47 09:00 10:40 Temperature 97.5 F L 98 F 98.1 F Pulse Rate 86 76 80 Respiratory 20 18 18 Rate Blood Pressure 117/72 115/78 119/81 O2 Sat by Pulse 99 98 98 Oximetry Medical Decision Making - Medical Decision Making Was pt. sent in by a medical professional or institution (, PA, W[facility] DOFFER, urgent care, hospital, or intermediate...) When possible be specific @ -No Did you speak to anyone other than the patient for history (EMS, parent, family, police, friend...)? What history was obtained from this source @ -No Did you review nursing and triage notes (agree or disagree)? Why? @ -I reviewed and agree with nursing and triage notes Were old charts reviewed (outside hosp., previous admission, EMS record, old EKG, old radiological studies, urgent care reports/EKG's, intermediate records)? Report findings @ -No old charts were reviewed Differential Diagnosis (chest pain, altered mental status, abdominal pain women, abdominal pain men, vaginal bleeding, weakness, fever, dyspnea, syncope, headache, dizziness, GI bleed, back pain, seizure, CVA, palpatations, mental health, musculoskeletal)? @ -Differential Musculoskeletal Muscular strain, contusion, ligament sprain, fracture, arthritis, septic arthritis, bursitis, cellulitis, muscle spasm, nerve compression, DVT, arterial occlusion, herpes zoster, electrolyte abnormality, tumor.... This is not meant to be in all inclusive list EKG interpreted by me (3pts min.). @ -None done X-rays interpreted by me (1pt min.). @ -None done CT interpreted by me (1pt min.). @ -None done U/S. @ -Ultrasound per radiologist report not interpreted by me demonstrates no DVT in the right lower extremity, right inguinal lymphadenopathy noted with right gr oin lymph node of 5.5 x 1.5 x 5.5 cm. What testing was considered but not performed or refused? (CT, X-rays, U/S, labs)? Why? @ -None What meds were considered but not given or refused? Why? @ -None Did you discuss the management of the patient with other professionals (professionals i.e. , PA, [facility] DOFFER, lab, RT, psych nurse, social media marketing analyst, lawyer criminal, teacher, ict help desk officer, case investigator)? Give summary @ -No Was smoking cessation discussed for >3mins.? @ -No Was critical care preformed (if so, how long)? @ -No Were there social determinants of health that impacted care today? How? (Homelessness, low income, unemployed, alcoholism, drug addiction, transportation, low edu. Level, literacy, decrease access to med. care, usp, rehab)? @ -No Was there de-escalation of care discussed even if they declined (Discuss DNR or withdrawal of care, Hospice)? DNR status @ -No What co-morbidities impacted this encounter? (DM, HTN, Smoking, COPD, CAD, Cancer, CVA, ARF, Chemo, Hep., AIDS, mental health diagnosis, sleep apnea, morbid obesity)? @ -Obesity and smoker Was patient admitted / discharged? Hospital course, mention meds given and route, prescriptions, significant lab abnormalities, going to OR and other pertinent info. @ -42-year-old male presenting to the emergency room concerns of increasing right lower extremity swelling with mild erythema. No other associated symptoms. No claudication or neuropathy. Will obtain Doppler of the right lower extremity along with laboratory studies of CBC, CMP and coags. No indication for medication administration at this time. Laboratory result CBC mild anemia hemoglobin 12.4, WBC and differential normal coags normal. CMP with creatinine slightly low 0.62 B1 normal echo with normal glucose elevated 101 liver enzymes and alkaline phosphatase normal. Ultrasound of right lower extremity demonstrates no DVT with very large right inguinal lymph node. Lower extremity swelling likely secondary to lymphedema. No evidence of cellulitis. No indication for further diagnostic testing or laboratory studi es at this time. Encouraged follow-up with primary care provider and if appropriate oncology for biopsy of right inguinal lymph node. Lymphedema care discussed. Questions and concerns answered. Return parameters to the emergency room discussed. Will discharge home in stable condition with conservative management for lymphedema to right lower extremity and follow-up with primary care provider for further evaluation of enlarged right inguinal lymph node. Undiagnosed new problem with uncertain prognosis? @ -Enlarged right inguinal lymph node Drug Therapy requiring intensive monitoring for toxicity (Heparin, Nitro, Insulin, Cardizem)? @ -No Were any procedures done? @ -No Diagnosis/symptom? @ -Right lower extremity lymphedema Acute, or Chronic, or Acute on Chronic? @ -Acute Uncomplicated (without systemic symptoms) or Complicated (systemic symptoms)? @ -Uncomplicated Side effects of treatment? @ -No Exacerbation, Progression, or Severe Exacerbation? @ -No Poses a threat to life or bodily function? How? (Chest pain, USA, MA, pneumonia, PE, COPD, DKA, ARF, appy, cholecystitis, CVA, Diverticulitis, Homicidal, Suicidal, threat to staff... and all critical care pts) @ -No Case discussed with Dr. Vega. - Lab Data Result diagrams: 02/02/23 08:12 02/02/23 08:12 Lab Results 02/02/23 02/02/23 02/02/23 Range/Units 08:12 08:12 08:12 WBC 9.1 (3.8-10.6) k/uL RBC 4.69 (4.30-5.90) m/uL Hgb 12.4 L (13.0-17.5) gm/dL Hct 40.6 (39.0-53.0) % MCV 86.5 (80.0-100.0) fL MCH 26.5 (25.0-35.0) pg MCHC 30.6 L (31.0-37.0) g/dL RDW 14.7 (11.5-15.5) % Plt Count 285 (150-450) k/uL MPV 7.6 Neutrophils % 70 % Lymphocytes % 20 % Monocytes % 6 % Eosinophils % 3 % Basophils % 0 % Neutrophils # 6.4 (1.3-7.7) k/uL Lymphocytes # 1.8 (1.0-4.8) k/uL Monocytes # 0.6 (0-1.0) k/uL Eosinophils # 0.2 (0-0.7) k/uL Basophils # 0.0 (0-0.2) k/uL PT 9.6 (9.0-12.0) sec INR 0.9 (<1.2) APTT 25.1 (22.0-30.0) sec Sodium 139 (137-145) mmol/L Potassium 4.6 (3.5-5.1) mmol/L Chloride 105 (98-107) mmol/L Carbon Dioxide 27 (22-30) mmol/L Anion Gap 7 mmol/L BUN 13 (9-20) mg/dL Creatinine 0.62 L (0.66-1.25) mg/dL Est GFR (CKD-EPI)AfAm >90 (>60 ml/min/1.73 sqM) Est GFR (CKD-EPI)NonAf >90 (>60 ml/min/1.73 sqM) Glucose 101 H (74-99) mg/dL Calcium 8.7 (8.4-10.2) mg/dL Total Bilirubin 0.4 (0.2-1.3) mg/dL AST 28 (17-59) U/L ALT 35 (4-49) U/L Alkaline Phosphatase 78 (38-126) U/L Total Protein 7.2 (6.3-8.2) g/dL Albumin 3.9 (3.5-5.0) g/dL - Radiology Data Radiology results: report reviewed, image reviewed Disposition Clinical Impression: Lymphedema of right lower extremity Disposition: HOME SELF-CARE Condition: Stable Instructions (If sedation given, give patient instructions): Lymphedema (ED) Additional Instructions: Compression and elevation of your right lower extremity is encouraged. Please follow-up with your primary care provider for further evaluation of enlarged lymph node in your right groin and possible oncology referral. Please return to the Emergency Department if symptoms worsen or any other concerns. Is patient prescribed a controlled substance at d/c from ED?: No Referrals: Carlos Turk DO [Primary Care Provider] - 1-2 days Quang Yusuf MD [STAFF PHYSICIAN] - 1-2 days Time of Disposition: 10:20
--- NOTE | 2023-02-02 08:50 | US ---
EXAMINATION TYPE: US venous doppler duplex LE RT DATE OF EXAM: 02/02/2023 8:45 AM COMPARISON: US 2021 CLINICAL INDICATION: Male, 42 years old with history of swelling; Right leg swelling SIDE PERFORMED: Right TECHNIQUE: The lower extremity deep venous system is examined utilizing real time linear array sonog leti with graded compression, doppler sonography and color-flow sonography. VESSELS IMAGED: Common Femoral Vein Deep Femoral Vein Greater Saphenous Vein * Femoral Vein Popliteal Vein Small Saphenous Vein * Proximal Calf Veins (* superficial vessels) Right Leg: Appears negative for DVT Right groin: 5.5 x 1.5 x 5.5cm lymph node IMPRESSION: 1. Grayscale, color doppler, spectral doppler imaging performed of the deep veins of the lower extrem ities. There is normal flow, compressibility, vascular waveforms. 2. Right inguinal lymphadenopathy correlate clinically.
[2023-02-02 09:20] LABS: Basophils % (A) 0 %; Eosinophils # (A) 0.2 k/uL (0-0.7); Eosinophils % (A) 3 %; HCT 40.6 % (39.0-53.0); HGB 12.4 gm/dL (13.0-17.5); Lymphocytes # (A) 1.8 k/uL (1.0-4.8); Lymphocytes % (A) 20 %; MCH 26.5 pg (25.0-35.0); MCHC 30.6 g/dL (31.0-37.0); MCV 86.5 fL (80.0-100.0); Mean Platelet Volume 7.6; Monocytes # (A) 0.6 k/uL (0-1.0); Monocytes % (A) 6 %; Neutrophils # (A) 6.4 k/uL (1.3-7.7); Neutrophils % (A) 70 %; Platelet Count 285 k/uL (150-450); RBC 4.69 m/uL (4.30-5.90); RDW 14.7 % (11.5-15.5); WBC 9.1 k/uL (3.8-10.6)
[2023-02-02 09:32] LABS: ALT 35 U/L (4-49); AST 28 U/L (17-59); African American GFR (CKD) >90 (>60 ml/min/1.73 sqM); Albumin 3.9 g/dL (3.5-5.0); Alkaline Phosphatase 78 U/L (38-126); Anion Gap 7 mmol/L; Blood Urea Nitrogen 13 mg/dL (9-20); Calcium 8.7 mg/dL (8.4-10.2); Carbon Dioxide 27 mmol/L (22-30); Chloride 105 mmol/L (98-107); Glucose 101 mg/dL (74-99); Non-African American GFR(CKD) >90 (>60 ml/min/1.73 sqM); Potassium 4.6 mmol/L (3.5-5.1); Sodium 139 mmol/L (137-145); Total Bilirubin 0.4 mg/dL (0.2-1.3); Total Protein 7.2 g/dL (6.3-8.2)
[2023-02-02 09:39] LABS: INR 0.9 (<1.2); Partial Thromboplastin Time 25.1 sec (22.0-30.0); Prothrombin Time 9.6 sec (9.0-12.0)
[2023-02-02 10:40] VITALS: RESP 18
[2023-02-02 10:42] VITALS: BP 119/81; PULSE 80; TEMP 98.1
== END 2023-02-02 10:42 | disposition home or self-care (01) ==
LOC: EC 07:41
DX: I89.0 Lymphedema, not elsewhere classified (principal); F17.200 Nicotine dependence, unspecified, uncomplicated
CPT/HCPCS: 36415; 80053; 85025; 85610; 85730; 99283

== ENCOUNTER → 2023-02-17 | Outpatient (CLI) | payer OTHER ==
--- NOTE | 2023-02-17 18:21 | CT ---
EXAMINATION TYPE: CT abdomen pelvis w con DATE OF EXAM: 02/17/2023 COMPARISON: 02/09/2021 INDICATION: Enlarged lymphnodes, swollen right leg DLP: 2060 mGycm, Automated exposure control for dose reduction was used. CONTRAST: 100 cc mL of Isovue 300. Study performed with Oral Contrast TECHNIQUE: Axial images were obtained from above the diaphragm to the pubic rami in the axial plane a t 5 mm thick sections. Reconstructed images are reviewed on the computer in the coronal plane. FINDINGS: Limited CT sections are obtained the lung bases. The lung bases are clear. CT ABDOMEN: No retrocrural enlarged lymphadenopathy is evident. A couple of small retrocrural lymph n odes may be present. There is a 1.0 cm lymph node within the mesentery. Series 3 image 50 Hazy increased densities within the mid mesentery. There are scattered small lymph nodes within the mesentery. Small periumbilical fa t-containing hernia may be present. Liver: Normal Spleen: Normal Pancreas: Normal Adrenal glands: The adrenal glands are normal. Gallbladder: Normal Kidneys: No masses are evident. No hydronephrosis is present. No cysts are present. Delayed images were obtained through the kidneys, which remain unremarkable. Aorta: Normal Inferior vena cava: Normal. Scattered small retro caval lymph nodes are present. CT PELVIS: Large bilateral inguinal lymph nodes are present. On the right this measures 2.3 cm. On th e left measure 1.7-1.3 cm. Scattered small iliac chain lymph nodes are present bilaterally. Small leif tty obturator canal may be present. Loops of bowel within the abdomen and pelvis are normal. There are loops of bowel which are incom pletely distended or lack oral contrast limiting their evaluation. Appendix: Normal as visualized. Urinary bladder: Normal. Genitourinary structures: Prostate appears unremarkable. Osseous structures: No suspicious lytic or sclerotic lesions. IMPRESSIONS: 1. There are enlarging nodes within the bilateral inguinal regions and a prominent lymph node within the mid mesentery. Additional shotty lymphadenopathy is scattered within the [id number]. Consider additional workup for lymphoma.
--- NOTE | 2023-02-18 12:27 | US ---
EXAMINATION TYPE: US st tissue neck DATE OF EXAM: 02/17/2023 COMPARISON: NONE CLINICAL INDICATION: Male, 42 years old with history of R590 LYMPH NODES; palpable felt by physician on left side of neck, no recent illness TECHNIQUE: Left neck US for lymph nodes FINDINGS: Senior Agricultural Assistant notes: Two lymph nodes directly adjacent to each other: 1. 1.2 x 1.3 x 0.6cm, 2. 1.2 x 1.2 x 0.6cm IMPRESSION: A couple borderline enlarged lymph nodes directly adjacent to each other along the left side of the n duran. Short axis measurement of 2 1.2 cm. These can be followed clinically. If further enlargement or suspicious clinical features develop, the area can be rescanned.
== END | disposition home or self-care (01) ==
LOC: RADCTMAIN 13:33
PROVIDERS: ATTEND Family Medicine
DX: R59.0 Localized enlarged lymph nodes (principal)
CPT/HCPCS: 76536; 74177; Q9967

== ENCOUNTER → 2023-03-03 | Outpatient (CLI) | payer OTHER ==
--- NOTE | 2023-03-04 07:58 | CT ---
EXAMINATION TYPE: CT chest w con DATE OF EXAM: 03/03/2023 COMPARISON: Chest CT October 12, 2021 and older study February 09, 2021 HISTORY: lymphadenopathy CT DLP: 727.6 mGycm. Automated Exposure Control for Dose Reduction was Utilized. TECHNIQUE: CT scan of the thorax is performed following with IV Contrast, patient injected with 100M L mL of Isovue 300. FINDINGS: LUNGS: The lungs remain grossly clear, there is no concerning parenchymal mass or nodule identified. There is no pleural effusion or pneumothorax seen. The tracheobronchial tree is patent. MEDIASTINUM: There are no greater than 1 cm hilar or mediastinal lymph nodes. No cardiomegaly or pe ricardial effusion is seen. OTHER: No additional significant abnormality is seen. IMPRESSION: No suspicious mass or adenopathy. No acute pulmonary process. No significant change from most recent CT.
== END | disposition home or self-care (01) ==
LOC: RADCTMAIN 16:42
PROVIDERS: ATTEND Internal Medicine Hematology & Oncology
DX: R59.0 Localized enlarged lymph nodes (principal)
CPT/HCPCS: 71260; Q9967

== ENCOUNTER 2023-03-09 09:14 | Day surgery (SDC) | payer OTHER ==
[2023-03-05 16:05] VITALS: BMI 51.7
[~2023-03-09 09:14] MED LIST: ACETAMINOPHEN TAB 500 MG TAB PO PRN; DEXAMETHASONE SOD PHOSPHATE 4 MG/ML 1 ML VIAL IV ONE; HEPARIN SODIUM,PORCINE/PF 5,000 UNIT/0.5 ML SYRINGE SQ PRN; LIDOCAINE 1% (10MG/ML) FOR IV START INTRADERMA PRN; METOCLOPRAMIDE 5 MG/ML 2 ML VIAL IVP PRN; ONDANSETRON 4 MG/2 ML VIAL IVP ONE; ceFAZolin 3 GM in SODIUM CHLORIDE 0.9% 100 ML IVPB PRN
--- NOTE | 2023-03-09 09:57 | P.GSHP ---
History of Present Illness H&P Date: 03/09/23 Chief Complaint: Lymphadenopathy This a 42-year-old male referred from Dr. Dickerson. Patient is undergoing workup for lymphadenopathy. Patient has a large bilateral inguinal lymph nodes. He presents today for right inguinal lymph node biopsy. Past Medical History Past Medical History: Sleep Apnea/CPAP/BIPAP Additional Past Medical History / Comment(s): hx covid x2, sleep apnea-unable to use machine, hx of cellulitis and lymphedema (8 months ago)., states currently right leg swelling- states 3 times the normal size for the last 3-4 weeks., states lump in groin on both sides. History of Any Multi-Drug Resistant Organisms: None Reported Past Surgical History: Hernia Repair, Orthopedic Surgery Additional Past Surgical History / Comment(s): nasal surgery as a child.,ORIF rt ankle, UMBILICAL HERNIA Past Anesthesia/Blood Transfusion Reactions: No Reported Reaction Past Psychological History: No Psychological Hx Reported Smoking Status: Current every day smoker Past Alcohol Use History: Occasional Additional Past Alcohol Use History / Comment(s): started smoking 1994, Smokes 1 1/ ppd., Past Drug Use History: None Reported Additional Drug Use History / Comment(s): occasional gummies or edibles. - Past Family History Mother Family Medical History: Hypertension Brother(s) Family Medical History: Diabetes Mellitus, Hypertension Father Family Medical History: Diabetes Mellitus Medications and Allergies Home Medications Medication Instructions Recorded Confirmed Type No Known Home Medications 03/05/23 03/05/23 History Allergies Allergy/AdvReac Type Severity Reaction Status Date / Time No Known Allergies Allergy Verified 03/05/23 15:41 Surgical - Exam Vital Signs Temp Pulse Resp BP Pulse Ox 97.9 F 71 20 115/71 98 03/09/23 09:54 03/09/23 09:54 03/09/23 09:54 03/09/23 09:54 03/09/23 09:54 - General Morbidly obese, BMI 52 well developed - Eyes PERRL - ENT normal pinna - Neck no masses - Respiratory normal expansion - Cardiovascular Rhythm: regular - Abdomen Abdomen: soft, non tender Enlarged right inguinal lymph nodes. There is a large lymph node mass palpated just below the right inguinal crease. Assessment and Plan Assessment: Right inguinal lymphadenopathy. Patient will undergo excisional lymph node biopsy. Patient is morbidly obese. I discussed the patient a risk of cellulitis/lymphocele risk due to increased obesity
[2023-03-09] MEDS: LACTATED RINGERS 1,000 ML IV SCH ×2 (10:25→12:54)
[2023-03-09] MEDS ORDERED: SUCCINYLCHOLINE CHLORIDE 200 MG/10 ML VIAL IV ONE (11:29)
[2023-03-09] MEDS ORDERED: MIDAZOLAM 2 MG/2 ML VIAL ONE (11:29)
[2023-03-09] MEDS ORDERED: LIDOCAINE 2% INJ 20 MG/ML (2 ML VIAL) ONE (11:29)
[2023-03-09] MEDS ORDERED: PHENYLEPHRINE-0.9% NACL SYG 1,000 MCG/10 ML SYRINGE ONE (11:29)
[2023-03-09] MEDS ORDERED: fentaNYL (PF) 50 MCG/ML 2 ML AMP ONE (11:29)
[2023-03-09] MEDS ORDERED: PROPOFOL 10 MG/ML 20 ML VIAL IV ONE (11:29)
[2023-03-09] MEDS ORDERED: BUPIVACAINE (PF) 0.25% 30 ML VIAL SQ ONE ×3 (11:32→12:19)
[2023-03-09] MEDS ORDERED: SODIUM CHLORIDE 0.9% 100 ML with ceFAZolin 3,000 MG IV ONE ×2 (11:35)
--- NOTE | 2023-03-09 12:27 | P.OP ---
Date of Procedure: 03/09/23 Preoperative Diagnosis: Right inguinal lymphadenopathy Postoperative Diagnosis: Right inguinal lymphadenopathy Procedure(s) Performed: Excisional biopsy right inguinal lymph node Anesthesia: MIKEL Surgeon: Darrel Mcgrath Estimated Blood Loss (ml): 10 Pathology: other (Lymph node) Condition: stable Disposition: PACU Description of Procedure: The patient's placed on the operating table in the supine position. He received IV sedation and then general endotracheal intubation. His right groin was prepped and draped usual sterile fashion. The patient had a large palpable lymph node just below the inguinal crease. A longitudinal skin incision was made over the area of the lymph node. Using blunt and sharp dissection with cautery and the LigaSure device the lymph node was dissected free. The specimens sent to pathology. There was no bleeding seen. A JARED drain was placed the deep space and brought out through a separate stab incision just above the incision.. There is no bleeding seen. The deep layer was closed with 0 Vicryl. Skin was closed interrupted 3-0 Monocryl suture. Dermabond was applied.
[2023-03-09 12:37] VITALS: TEMP 97
[2023-03-09] MEDS: HYDROmorphone 0.5 MG/0.5 ML SYRINGE IVP PRN ×2 (12:47→13:04)
[2023-03-09 14:06] VITALS: BP 106/57; PULSE 65; RESP 17
== END 2023-03-09 14:46 | disposition home or self-care (01) ==
LOC: OR 09:14
PROVIDERS: ATTEND Surgery
DX: R59.0 Localized enlarged lymph nodes (principal); F10.90 Alcohol use, unspecified, uncomplicated; F17.210 Nicotine dependence, cigarettes, uncomplicated; G47.33 Obstructive sleep apnea (adult) (pediatric); Z99.89 Dependence on other enabling machines and devices; Z86.16 Personal history of COVID-19; Z98.890 Other specified postprocedural states; Z82.49 Family history of ischemic heart disease and other diseases of the circulatory system; Z83.3 Family history of diabetes mellitus
CPT/HCPCS: 38531; 88305; J2250; J0330; J1100; J2405; J0690; J3010; J2370; J2704; J1170; J1644; J2001

== ENCOUNTER 2023-03-11 08:29 | Emergency (ER) | payer OTHER ==
[2023-03-11 08:36] VITALS: TEMP 97.9
--- NOTE | 2023-03-11 09:16 | ED ---
Recheck HPI - General Chief Complaint: Recheck/Abnormal Lab/Rx Stated Complaint: Drain Tube is Leaking Sent by Dr Mcgrath Time Seen by Provider: 03/11/23 08:50 Source: patient Mode of arrival: ambulatory Limitations: no limitations - History of Present Illness Initial Comments: patient is a 42-year-old man presenting to the emergency room at the direction of Dr. Tejeda's office for further evaluation of drainage around JARED insertion site which was placed after biopsy of a right groin lymph node by Dr. Cornell earlier in the week. He reports that the area has been draining down his leg serous-like fluid without any foul odor since earlier today. He contacted the office to advised him to present to the emergency room or come to the office in the afternoon during Dr. Cornell's office hours. He opted to present to the emergency room. He denies any other complaints or concerns including any redness, purulent drainage, slight tenderness, headache, dizziness, chest pain, shortness of breath, abdominal pain, nausea, vomiting, fevers or chills. - Related Data Previous Rx's Medication Instructions Recorded Acetaminophen Tab [Tylenol] 650 mg PO Q6H #30 tab 03/09/23 Ibuprofen [Motrin] 600 mg PO Q6HR PRN #40 tab 03/09/23 Allergies Allergy/AdvReac Type Severity Reaction Status Date / Time No Known Allergies Allergy Verified 03/05/23 15:41 Review of Systems ROS Statement: Those systems with pertinent positive or pertinent negative responses have been documented in the HPI. ROS Other: All systems not noted in ROS Statement are negative. Past Medical History Past Medical History: Sleep Apnea/CPAP/BIPAP Additional Past Medical History / Comment(s): hx covid x2, sleep apnea-unable to use machine, hx of cellulitis and lymphedema (8 months ago)., states currently right leg swelling- states 3 times the normal size for the last 3-4 weeks., states lump in groin on both sides. History of Any Multi-Drug Resistant Organisms: None Reported Past Surgical History: EPS, Hernia Repair, Orthopedic Surgery Additional Past Surgical History / Comment(s): nasal surgery as a child.,ORIF rt ankle, UMBILICAL HERNIA, biopsy of groin Past Anesthesia/Blood Transfusion Reactions: No Reported Reaction Past Psychological History: No Psychological Hx Reported Smoking Status: Current every day smoker Past Alcohol Use History: None Reported Past Drug Use History: None Reported - Past Family History Mother Family Medical History: Hypertension Brother(s) Family Medical History: Diabetes Mellitus, Hypertension Father Family Medical History: Diabetes Mellitus General Exam - General Exam Comments Initial Comments: GENERAL: No acute distress, well developed, well nourished. HEENT: Normocephalic, atraumatic. Pupils equal, round, reactive to light. Moist mucous membranes. LUNGS: No respiratory distress or use of accessory muscles. HEART: Regular rate.. ABDOMEN: Non-distended. soft nontender. Perineal region right sided drain and biopsy site as indicated below. BACK: Normal inspection. EXTREMITIES: No tenderness. Moves all extremities. NEUROLOGIC: Alert & oriented x 3. CN II-XII grossly intact. PSYCHIATRIC: Normal affect and behavior. DERMATOLOGIC: Biopsy site and JARED drain with significant amount of drain noted outside insertion site with JARED bulb unable to maintain suction. One suture intact, status post removal of drain and suture without complication. Dressing applied. Limitations: no limitations Course Vital Signs 03/11/23 03/11/23 08:31 09:05 Temperature 97.9 F Pulse Rate 89 79 Respiratory 18 20 Rate Blood Pressure 115/73 135/76 O2 Sat by Pulse 96 98 Oximetry Medical Decision Making - Medical Decision Making Was pt. sent in by a medical professional or institution (, PA, GASTROINTESTINAL TECHNICIAN, urgent care, hospital, or long-term...) When possible be specific @ -Yes directed to present to the emergency room by Dr. Mcgrath's office Did you speak to anyone other than the patient for history (EMS, parent, family, police, friend...)? What history was obtained from this source @ -No Did you review nursing and triage notes (agree or disagree)? Why? @ -I reviewed and agree with nursing and triage notes Were old charts reviewed (outside hosp., previous admission, EMS record, old EKG, old radiological studies, urgent care reports/EKG's, long-term records)? Report findings @ -No old charts were reviewed Differential Diagnosis (chest pain, altered mental status, abdominal pain women, abdominal pain men, vaginal bleeding, weakness, fever, dyspnea, syncope, headache, dizziness, GI bleed, back pain, seizure, CVA, palpatations, mental health, musculoskeletal)? @ -not applicable EKG interpreted by me (3pts min.). @ -None done X-rays interpreted by me (1pt min.). @ -None done CT interpreted by me (1pt min.). @ -None done U/S interpreted by me (1pt. min.). @ -None done What testing was considered but not performed or refused? (CT, X-rays, U/S, labs)? Why? @ -None What meds were considered but not given or refused? Why? @ -None Did you discuss the management of the patient with other professionals (professionals i.e. DrAlvin, PA, GASTROINTESTINAL TECHNICIAN, lab, RT, psych nurse, social security assessor, rn wound, teacher, electronic intelligence officer, shoe caser)? Give summary @ -Yes, spoke with Dr. Mcgrath regarding Asians presentation and recommendation to present to the emergency room by his office. He advised to complete the removal of JARED drain and apply dressing and have patient follow-up in his office as scheduled. Was smoking cessation discussed for >3mins.? @ -No Was critical care preformed (if so, how long)? @ -No Were there social determinants of health that impacted care today? How? (Homelessness, low income, unemployed, alcoholism, drug addiction, transportation, low edu. Level, literacy, decrease access to med. care, usp, rehab)? @ -No Was there de-escalation of care discussed even if they declined (Discuss DNR or withdrawal of care, Hospice)? DNR status @ -No What co-morbidities impacted this encounter? (DM, HTN, Smoking, COPD, CAD, Cancer, CVA, ARF, Chemo, Hep., AIDS, mental health diagnosis, sleep apnea, morbid obesity)? @ -None Was patient admitted / discharged? Hospital course, mention meds given and route, prescriptions, significant lab abnormalities, going to OR and other pertinent info. @ -42-year-old male presenting to the emergency room at the direction of Dr. Cornell's office with complaints of drainage around his JARED drain after his biopsy completed by Dr. Mcgrath 2 days ago. Spoke with Dr. Mcgrath regarding patient's presentation and amount of drain currently protruding out of insertion site. Dr. Mcgrath advised to remove remainder of drain and apply dressing advising patient to continue to utilize dressings while draining and follow-up with his office as scheduled. JARED drain including single suture removed and dressing applied without complications. Questions and concerns answered. Return parameters the emergency room discussed. Will discharge home in stable condition with dressing intact to JARED insertion site advising follow-up with his surgeon. Undiagnosed new problem with uncertain prognosis? @ -No Drug Therapy requiring intensive monitoring for toxicity (Heparin, Nitro, Insulin, Cardizem)? @ -No Were any procedures done? @ -Yes, JARED drain was removed along with single suture holding JARED drain in place and dressing was applied. No complications tolerated well. Diagnosis/symptom? @ -JARED drain malfunction Acute, or Chronic, or Acute on Chronic? @ -Acute Uncomplicated (without systemic symptoms) or Complicated (systemic symptoms)? @ -Uncomplicated Side effects of treatment? @ -No Exacerbation, Progression, or Severe Exacerbation? @ -No Poses a threat to life or bodily function? How? (Chest pain, [place], [place], pneumonia, PE, COPD, DKA, ARF, appy, cholecystitis, CVA, Diverticulitis, Homicidal, Suicidal, threat to staff... and all critical care pts) @ -No Case discussed with Dr. Agarwal. Disposition Clinical Impression: Encounter for wound re-check Disposition: HOME SELF-CARE Condition: Stable Additional Instructions: Keep biopsy site and drainage site clean and dry. Continue use of gauze until drainage subsides. Follow-up with Dr. Mcgrath as scheduled. Please return to the Emergency Department if symptoms worsen or any other concerns. Is patient prescribed a controlled substance at d/c from ED?: No Referrals: Carlos Turk DO [Primary Care Provider] - 1-2 days Darrel Mcgrath MD [STAFF PHYSICIAN] - 1-2 days (as scheduled) Time of Disposition: 09:15
[2023-03-11 09:18] VITALS: BP 135/76; PULSE 79; RESP 20
== END 2023-03-11 09:25 | disposition home or self-care (01) ==
LOC: EC 08:29
DX: Z48.00 Encounter for change or removal of nonsurgical wound dressing (principal); G47.30 Sleep apnea, unspecified; F17.200 Nicotine dependence, unspecified, uncomplicated; Z86.16 Personal history of COVID-19
CPT/HCPCS: 99283

== ENCOUNTER 2023-04-10 00:37 | Emergency (ER) | payer OTHER ==
[2023-04-10 00:42] VITALS: TEMP 97.9
[2023-04-10] MEDS ORDERED: KETOROLAC 15 MG/ML 1 ML VIAL IVP STA (01:09)
[2023-04-10 02:06] LABS: Basophils % (A) 0 %; Eosinophils # (A) 0.3 k/uL (0-0.7); Eosinophils % (A) 3 %; HCT 37.4 % (39.0-53.0); HGB 12.7 gm/dL (13.0-17.5); Lymphocytes # (A) 2.2 k/uL (1.0-4.8); Lymphocytes % (A) 22 %; MCH 29.3 pg (25.0-35.0); MCV 86.2 fL (80.0-100.0); Mean Platelet Volume 7.6; Monocytes # (A) 0.6 k/uL (0-1.0); Monocytes % (A) 6 %; Neutrophils # (A) 6.8 k/uL (1.3-7.7); Neutrophils % (A) 68 %; Platelet Count 262 k/uL (150-450); RBC 4.34 m/uL (4.30-5.90); RDW 14.2 % (11.5-15.5)
[2023-04-10 02:29] LABS: ALT 35 U/L (4-49); AST 30 U/L (17-59); African American GFR (CKD) >90 (>60 ml/min/1.73 sqM); Alkaline Phosphatase 77 U/L (38-126); Anion Gap 8 mmol/L; Blood Urea Nitrogen 14 mg/dL (9-20); Calcium 9.1 mg/dL (8.4-10.2); Carbon Dioxide 27 mmol/L (22-30); Chloride 106 mmol/L (98-107); Glucose 116 mg/dL (74-99); Non-African American GFR(CKD) >90 (>60 ml/min/1.73 sqM); Potassium 3.9 mmol/L (3.5-5.1); Sodium 141 mmol/L (137-145); Total Bilirubin 0.3 mg/dL (0.2-1.3); Total Protein 7.2 g/dL (6.3-8.2)
--- NOTE | 2023-04-10 04:47 | ED ---
Skin/Abscess/FB HPI - General Chief complaint: Skin/Abscess/Foreign Body Stated complaint: Swelling in Groin Area Time Seen by Provider: 04/10/23 00:48 Source: patient Mode of arrival: ambulatory Limitations: no limitations - History of Present Illness Initial comments: 43-year-old male presenting with chief complaint of swelling to the right groin. Patient had a lymph node removed from this area about a 1 month ago. He is now having swelling and warmth to the area. No redness or firmness. No fevers or chills. No abdominal pain. No nausea, vomiting, diarrhea. No red streaking down the leg. - Related Data Previous Rx's Medication Instructions Recorded Acetaminophen Tab [Tylenol] 650 mg PO Q6H #30 tab 03/09/23 Ibuprofen [Motrin] 600 mg PO Q6HR PRN #40 tab 03/09/23 Allergies Allergy/AdvReac Type Severity Reaction Status Date / Time No Known Allergies Allergy Verified 04/10/23 00:42 Review of Systems ROS Statement: Those systems with pertinent positive or pertinent negative responses have been documented in the HPI. ROS Other: All systems not noted in ROS Statement are negative. Past Medical History Past Medical History: Sleep Apnea/CPAP/BIPAP Additional Past Medical History / Comment(s): hx covid x2, sleep apnea-unable to use machine, hx of cellulitis and lymphedema (8 months ago)., states currently right leg swelling- states 3 times the normal size for the last 3-4 weeks., states lump in groin on both sides. History of Any Multi-Drug Resistant Organisms: None Reported Past Surgical History: EPS, Hernia Repair, Orthopedic Surgery Additional Past Surgical History / Comment(s): nasal surgery as a child.,ORIF rt ankle, UMBILICAL HERNIA, biopsy of groin Past Anesthesia/Blood Transfusion Reactions: No Reported Reaction Past Psychological History: Anxiety Smoking Status: Current every day smoker Past Alcohol Use History: None Reported Past Drug Use History: None Reported - Past Family History Mother Family Medical History: Hypertension Brother(s) Family Medical History: Diabetes Mellitus, Hypertension Father Family Medical History: Diabetes Mellitus General Exam Limitations: no limitations General appearance: alert, in no apparent distress Head exam: Present: atraumatic, normocephalic, normal inspection Eye exam: Present: normal appearance Neck exam: Present: normal inspection, full ROM Respiratory exam: Present: normal lung sounds bilaterally. Absent: respiratory distress, wheezes, rales, rhonchi, stridor Cardiovascular Exam: Present: regular rate, normal rhythm, normal heart sounds. Absent: systolic murmur, diastolic murmur, rubs, gallop, clicks Extremities exam: Present: other (There is swelling noted to the right groin) Neurological exam: Present: alert, oriented X3, CN II-XII intact Psychiatric exam: Present: normal affect, normal mood Skin exam: Present: warm, dry, intact, normal color. Absent: rash Course Vital Signs 04/10/23 04/10/23 04/10/23 00:39 04:42 05:29 Temperature 97.9 F Pulse Rate 84 77 79 Respiratory 18 16 16 Rate Blood Pressure 130/82 129/79 124/68 O2 Sat by Pulse 98 99 98 Oximetry Medical Decision Making - Medical Decision Making Was pt. sent in by a medical professional or institution (, PA, AGILITY INSTRUCTOR, urgent care, hospital, or senior care...) When possible be specific @ -No Did you speak to anyone other than the patient for history (EMS, parent, family, police, friend...)? What history was obtained from this source @ -No Did you review nursing and triage notes (agree or disagree)? Why? @ -I reviewed and agree with nursing and triage notes Were old charts reviewed (outside hosp., previous admission, EMS record, old EKG, old radiological studies, urgent care reports/EKG's, senior care records)? Report findings @ -No old charts were reviewed Differential Diagnosis (chest pain, altered mental status, abdominal pain women, abdominal pain men, vaginal bleeding, weakness, fever, dyspnea, syncope, headache, dizziness, GI bleed, back pain, seizure, CVA, palpatations, mental health, musculoskeletal)? @ -Differential includes cellulitis, abscess, hematoma, lymphadenopathy, this is not an all inclusive list EKG interpreted by me (3pts min.). @ -As above X-rays interpreted by me (1pt min.). @ -None done CT interpreted by me (1pt min.). @ -Right groin hematoma as seen on same day ultrasound. This is likely secondary to recent procedure U/S interpreted by me (1pt. min.). @ -No evidence of right lower extremity DVT. Right inguinal hematoma likely from prior surgery. Prominent right inguinal lymph node. What testing was considered but not performed or refused? (CT, X-rays, U/S, labs)? Why? @ -None What meds were considered but not given or refused? Why? @ -None Did you discuss the management of the patient with other professionals (professionals i.e. DrAlvin, PA, AGILITY INSTRUCTOR, lab, RT, psych nurse, social contact worker, appraisal coordinator, teacher, chief contract officer, gearcase assembler)? Give summary @ -No Was smoking cessation discussed for >3mins.? @ -No Was critical care preformed (if so, how long)? @ -No Were there social determinants of health that impacted care today? How? ( Homelessness, low income, unemployed, alcoholism, drug addiction, transportation, low edu. Level, literacy, decrease access to med. care, fdc, rehab)? @ -No Was there de-escalation of care discussed even if they declined (Discuss DNR or withdrawal of care, Hospice)? DNR status @ -No What co-morbidities impacted this encounter? (DM, HTN, Smoking, COPD, CAD, Cancer, CVA, ARF, Chemo, Hep., AIDS, mental health diagnosis, sleep apnea, morbid obesity)? @ -None Was patient admitted / discharged? Hospital course, mention meds given and route, prescriptions, significant lab abnormalities, going to OR and other pertinent info. @ -43-year-old male presenting with chief complaint of swelling to the right groin. One month ago he had a lymph node removed for biopsy. Patient also has lipedema and has swelling to the right lower extremity. On physical examination there is swelling and tenderness noted, there is no erythema or induration. Lab work shows no leukocytosis. Hemoglobin is stable. Ultrasound shows no DVT, there is fluid collection consistent with hematoma and prominent lymph nodes. CT shows the same hematoma and lymph nodes. Patient is educated on today's findings educated on supportive management at home. He is instructed to follow- up with his surgeon Dr. Mcgrath. Follow-up with PCP. Report back to ER with any new or worsening symptoms. Discussed return parameters and answered all questions. Patient conveyed verbal understanding and agreed to the plan. I discussed this case in detail with my attending Dr. De León Undiagnosed new problem with uncertain prognosis? @ -No Drug Therapy requiring intensive monitoring for toxicity (Heparin, Nitro, Insulin, Cardizem)? @ -No Were any procedures done? @ -No Diagnosis/symptom? @ -Hematoma Acute, or Chronic, or Acute on Chronic? @ -Acute Uncomplicated (without systemic symptoms) or Complicated (systemic symptoms)? @ -uncomplicated Side effects of treatment? @ -No Exacerbation, Progression, or Severe Exacerbation? @ -No Poses a threat to life or bodily function? How? (Chest pain, [place], [place], pneumonia, PE, COPD, DKA, ARF, appy, cholecystitis, CVA, Diverticulitis, Homicidal, Suicidal, threat to staff... and all critical care pts) @ -Low likelihood - Lab Data Result diagrams: 04/10/23 01:25 04/10/23 01:25 Lab Results 04/10/23 04/10/23 Range/Units 01:25 01:25 WBC 10.0 (3.8-10.6) k/uL RBC 4.34 (4.30-5.90) m/uL Hgb 12.7 L (13.0-17.5) gm/dL Hct 37.4 L (39.0-53.0) % MCV 86.2 (80.0-100.0) fL MCH 29.3 (25.0-35.0) pg MCHC 34.0 (31.0-37.0) g/dL RDW 14.2 (11.5-15.5) % Plt Count 262 (150-450) k/uL MPV 7.6 Neutrophils % 68 % Lymphocytes % 22 % Monocytes % 6 % Eosinophils % 3 % Basophils % 0 % Neutrophils # 6.8 (1.3-7.7) k/uL Lymphocytes # 2.2 (1.0-4.8) k/uL Monocytes # 0.6 (0-1.0) k/uL Eosinophils # 0.3 (0-0.7) k/uL Basophils # 0.0 (0-0.2) k/uL Sodium 141 (137-145) mmol/L Potassium 3.9 (3.5-5.1) mmol/L Chloride 106 (98-107) mmol/L Carbon Dioxide 27 (22-30) mmol/L Anion Gap 8 mmol/L BUN 14 (9-20) mg/dL Creatinine 0.77 (0.66-1.25) mg/dL Est GFR (CKD-EPI)AfAm >90 (>60 ml/min/1.73 sqM) Est GFR (CKD-EPI)NonAf >90 (>60 ml/min/1.73 sqM) Glucose 116 H (74-99) mg/dL Calcium 9.1 (8.4-10.2) mg/dL Total Bilirubin 0.3 (0.2-1.3) mg/dL AST 30 (17-59) U/L ALT 35 (4-49) U/L Alkaline Phosphatase 77 (38-126) U/L Total Protein 7.2 (6.3-8.2) g/dL Albumin 4.0 (3.5-5.0) g/dL Disposition Clinical Impression: Hematoma Disposition: HOME SELF-CARE Condition: Good Instructions (If sedation given, give patient instructions): Hematoma (ED) Additional Instructions: Follow-up with your surgeon. Report back to ER with any new or worsening symptoms. Use warm compresses. Is patient prescribed a controlled substance at d/c from ED?: No Referrals: Carlos Turk DO [Primary Care Provider] - 1-2 days Darrel Mcgrath MD [STAFF PHYSICIAN] - 1-2 days Time of Disposition: 05:21
--- NOTE | 2023-04-10 05:07 | CT ---
EXAMINATION TYPE: CT pelvis w con CT DLP: 3522 mGycm, Automated exposure control for dose reduction was used. DATE OF EXAM: 04/10/2023 2:55 AM COMPARISON: Ultrasound same day CLINICAL INDICATION:Male, 43 years old with history of swelling R groin; TECHNIQUE: Axial CT of the abdomen and pelvis. Sagittal and coronal reformats were created on a [employer] workstation. Contrast used: 100 cc of Isovue-300 (none if empty) Oral contrast used: (none if empty) FINDINGS: BLADDER: Unremarkable REPRODUCTIVE: Unremarkable. STOMACH AND BOWEL: No evidence of bowel obstruction. PERITONEUM/RETROPERITONEUM: No evidence of pneumoperitoneum or free fluid. VASCULATURE: No evidence of aortic aneurysm. MUSCULOSKELETAL: No acute osseous abnormalities LYMPH NODES: No gross evidence for lymphadenopathy. Prominent right inguinal lymph nodes measuring up to 12 mm on the right and 17 mm in short axis on the left. SOFT TISSUE/ABDOMINAL WALL: Fat-containing umbilical hernia. Complex fluid collection in the right gr oin comparing with ultrasound same day correlates with likely blood products. This measures 7.0 x 4.7 cm. IMPRESSION: Right groin hematoma as seen on same day ultrasound. This is likely secondary to recent procedure.
[2023-04-10 05:26] VITALS: RESP 16
[2023-04-10 05:38] VITALS: BP 124/68; PULSE 79
--- NOTE | 2023-04-10 10:47 | US ---
EXAMINATION TYPE: US venous doppler duplex LE RT DATE OF EXAM: 04/10/2023 2:06 AM COMPARISON: CT same day CLINICAL INDICATION: Male, 43 years old with history of leg swelling; SIDE PERFORMED: Right TECHNIQUE: The lower extremity deep venous system is examined utilizing real time linear array sonog leti with graded compression, doppler sonography and color-flow sonography. VESSELS IMAGED: Common Femoral Vein Deep Femoral Vein Greater Saphenous Vein * Femoral Vein Popliteal Vein Small Saphenous Vein * Proximal Calf Veins (* superficial vessels) Right Leg: Negative for DVT, Grayscale, color doppler, spectral doppler imaging performed of the palmira p veins of the lower extremities. There is normal flow, compressibility, vascular waveforms. Right inguinal region complex fluid collection measuring 8.6 x 8.3 x 3.7 cm without internal color Do ppler flow. IMPRESSION: 1. No evidence of right lower extreme deep vein thrombosis. 2. Right inguinal hematoma likely from prior surgery. 3. Prominent right inguinal lymph node as seen on CT.\
== END 2023-04-10 05:29 | disposition home or self-care (01) ==
LOC: EC 00:37
DX: S30.1XXA Contusion of abdominal wall, initial encounter (principal); G47.30 Sleep apnea, unspecified; F17.200 Nicotine dependence, unspecified, uncomplicated; Z86.59 Personal history of other mental and behavioral disorders; Z86.16 Personal history of COVID-19; X58.XXXA Exposure to other specified factors, initial encounter
CPT/HCPCS: 36415; 80053; 85025; 93971; 72193; 99284; 96374; J1885; Q9967

== ENCOUNTER 2023-07-15 10:38 | Emergency (ER) | payer OTHER ==
[2023-07-15] MEDS ORDERED: ORPHENADRINE 30 MG/ML 2 ML VIAL IM STA (10:51)
[2023-07-15] MEDS ORDERED: HYDROmorphone 0.5 MG/0.5 ML SYRINGE IVP STA (10:51)
[2023-07-15] MEDS ORDERED: KETOROLAC 15 MG/ML 1 ML VIAL IVP STA (10:51)
[2023-07-15 10:56] VITALS: RESP 18
--- NOTE | 2023-07-15 11:05 | ED ---
Back Pain HPI - General Chief Complaint: Back Pain/Injury Stated Complaint: back pain Time Seen by Provider: 07/15/23 10:44 Source: patient, RN notes reviewed Limitations: no limitations - History of Present Illness Initial Comments: 43-year-old male presents emergency Department chief complaint of mid to low back pain. He is sudden onset was standing at work. He states that he feels very tight states that he's had nerve, possible disc issue in his back in the past. Denies any bowel, bladder incontinence or retention. No saddle anesthesias. Patient states that nothing makes the pain feel better, it is worse with any movement. Patient denies any associated symptoms. - Related Data Previous Rx's Medication Instructions Recorded Acetaminophen Tab [Tylenol] 650 mg PO Q6H #30 tab 03/09/23 Ibuprofen [Motrin] 600 mg PO Q6HR PRN #40 tab 03/09/23 Cyclobenzaprine [Flexeril] 10 mg PO TID PRN #15 tab 07/15/23 Ibuprofen [Motrin] 600 mg PO Q8HR PRN #20 tab 07/15/23 predniSONE 50 mg PO DAILY #5 tab 07/15/23 Allergies Allergy/AdvReac Type Severity Reaction Status Date / Time No Known Allergies Allergy Verified 07/15/23 10:42 Review of Systems ROS Statement: Those systems with pertinent positive or pertinent negative responses have been documented in the HPI. ROS Other: All systems not noted in ROS Statement are negative. Past Medical History Past Medical History: Sleep Apnea/CPAP/BIPAP Additional Past Medical History / Comment(s): hx covid x2, sleep apnea-unable to use machine, hx of cellulitis and lymphedema (8 months ago)., states currently right leg swelling- states 3 times the normal size for the last 3-4 weeks., states lump in groin on both sides. History of Any Multi-Drug Resistant Organisms: None Reported Past Surgical History: EPS, Hernia Repair, Orthopedic Surgery Additional Past Surgical History / Comment(s): nasal surgery as a child.,ORIF rt ankle, UMBILICAL HERNIA, biopsy of groin Past Anesthesia/Blood Transfusion Reactions: No Reported Reaction Past Psychological History: Anxiety Smoking Status: Current every day smoker Past Alcohol Use History: None Reported Past Drug Use History: None Reported - Past Family History Mother Family Medical History: Hypertension Brother(s) Family Medical History: Diabetes Mellitus, Hypertension Father Family Medical History: Diabetes Mellitus General Exam Limitations: no limitations General appearance: alert, in no apparent distress Head exam: Present: atraumatic, normocephalic, normal inspection Eye exam: Present: normal appearance, PERRL, EOMI. Absent: scleral icterus, conjunctival injection, periorbital swelling Neck exam: Present: full ROM Respiratory exam: Present: normal lung sounds bilaterally. Absent: respiratory distress, wheezes, rales, rhonchi, stridor Cardiovascular Exam: Present: regular rate, normal rhythm, normal heart sounds. Absent: systolic murmur, diastolic murmur, rubs, gallop, clicks GI/Abdominal exam: Present: soft, normal bowel sounds. Absent: distended, tenderness, guarding, rebound, rigid Extremities exam: Present: normal inspection, full ROM, normal capillary refill. Absent: tenderness, pedal edema, joint swelling, calf tenderness Back exam: Present: tenderness, muscle spasm, paraspinal tenderness, vertebral tenderness. Absent: full ROM Neurological exam: Present: alert, oriented X3, reflexes normal. Absent: motor sensory deficit Skin exam: Present: warm, dry, intact, normal color. Absent: rash Course Vital Signs 07/15/23 07/15/23 10:40 11:33 Temperature 98 F 97.8 F Pulse Rate 92 90 Respiratory 18 18 Rate Blood Pressure 138/79 134/75 O2 Sat by Pulse 96 95 Oximetry Medical Decision Making - Medical Decision Making Was pt. sent in by a medical professional or institution (, PA, HEALTH AND SAFETY COORDINATOR, urgent care, hospital, or retirement...) When possible be specific @ -No Did you speak to anyone other than the patient for history (EMS, parent, family, police, friend...)? What history was obtained from this source @ -No Did you review nursing and triage notes (agree or disagree)? Why? @ -I reviewed and agree with nursing and triage notes Were old charts reviewed (outside hosp., previous admission, EMS record, old EKG, old radiological studies, urgent care reports/EKG's, retirement records)? Report findings @ -No old charts were reviewed Differential Diagnosis (chest pain, altered mental status, abdominal pain women, abdominal pain men, vaginal bleeding, weakness, fever, dyspnea, syncope, headache, dizziness, GI bleed, back pain, seizure, CVA, palpatations, mental health, musculoskeletal)? @ -nDifferential Back Pain: Strain, zoster, cauda equina syndrome, epidural abscess, vertebral osteomyelitis, discitis, fracture, subluxation, disc herniation, DJD, spinal stenosis, dissection, AAA, pancreatitis, peptic ulcer disease, pyelonephritis, kidney stone, this is not meant to be an all-inclusive list.ble EKG interpreted by me (3pts min.). @ -No X-rays interpreted by me (1pt min.). @ -X-ray lumbar spine no acute fracture or malalignment, x-ray and thoracic lumbar junction no acute abnormality CT interpreted by me (1pt min.). @ -None done U/S interpreted by me (1pt. min.). @ -None done What testing was considered but not performed or refused? (CT, X-rays, U/S, labs)? Why? @ -None What meds were considered but not given or refused? Why? @ -None Did you discuss the management of the patient with other professionals (professionals i.e. , PA, HEALTH AND SAFETY COORDINATOR, lab, RT, psych nurse, aids social worker, header set up operator, teacher, personnel officer, caser)? Give summary @ -No Was smoking cessation discussed for >3mins.? @ -No Was critical care preformed (if so, how long)? @ -No Were there social determinants of health that impacted care today? How? (Homelessness, low income, unemployed, alcoholism, drug addiction, transportation, low edu. Level, literacy, decrease access to med. care, senior living, rehab)? @ -No Was there de-escalation of care discussed even if they declined (Discuss DNR or withdrawal of care, Hospice)? DNR status @ -No What co-morbidities impacted this encounter? (DM, HTN, Smoking, COPD, CAD, Cancer, CVA, ARF, Chemo, Hep., AIDS, mental health diagnosis, sleep apnea, morbid obesity)? @ -None Was patient admitted / discharged? Hospital course, mention meds given and route, prescriptions, significant lab abnormalities, going to OR and other pertinent info. @ -[Discharge patient is mechanical back pain, back strain. Patient is discharged in stable condition he has no red flag symptoms. Patient provided analgesics. Undiagnosed new problem with uncertain prognosis? @ -No Drug Therapy requiring intensive monitoring for toxicity (Heparin, Nitro, Insulin, Cardizem)? @ -No Were any procedures done? @ -No Diagnosis/symptom? @ -Back pain Acute, or Chronic, or Acute on Chronic? @ -Acute Uncomplicated (without systemic symptoms) or Complicated (systemic symptoms)? @ -uncomplicated Side effects of treatment? @ -No Exacerbation, Progression, or Severe Exacerbation? @ -No Poses a threat to life or bodily function? How? (Chest pain, USA, PA, pneumonia, PE, COPD, DKA, ARF, appy, cholecystitis, CVA, Diverticulitis, Homicidal, Suicidal, threat to staff... and all critical care pts) @ -No Disposition Clinical Impression: Strain of lumbar region, Mechanical back pain Disposition: HOME SELF-CARE Condition: Stable Instructions (If sedation given, give patient instructions): Acute Low Back Pain (ED) Additional Instructions: Please return to the Emergency Department if symptoms worsen or any other concerns. Prescriptions: Cyclobenzaprine [Flexeril] 10 mg PO TID PRN #15 tab PRN Reason: Muscle Spasm Ibuprofen [Motrin] 600 mg PO Q8HR PRN #20 tab PRN Reason: Pain predniSONE 50 mg PO DAILY #5 tab Is patient prescribed a controlled substance at d/c from ED?: No Referrals: Carlos Turk DO [Primary Care Provider] - 1-2 days William Shay DO [Doctor of Osteopathic Medicine] - 1-2 days
[2023-07-15 11:38] VITALS: TEMP 97.8
--- NOTE | 2023-07-15 11:59 | XR ---
EXAMINATION TYPE: XR lumbar spine 2 or 3V DATE OF EXAM: 07/15/2023 CLINICAL HISTORY: pain TECHNIQUE: Three views of the lumbar spine are submitted. COMPARISON: None. FINDINGS: There are 5 lumbar type vertebral bodies identified. The lumbar spine shows satisfactory alignment w ithout evidence of acute fracture or dislocation. Vertebral body heights are within normal limits. Disc spaces are within normal limits. The overlying soft tissue appears unremarkable. IMPRESSION: No acute fracture or dislocation is seen in the lumbar spine. ICD 10 NO FRACTURE, INITIAL EVALUATION
--- NOTE | 2023-07-15 12:02 | XR ---
EXAMINATION TYPE: XR thoraco lumbar junction DATE OF EXAM: 07/15/2023 COMPARISON: NONE HISTORY: Pain TECHNIQUE: Two views of thoracolumbar spine FINDINGS: No fracture or malalignment. Mild curvature convex to the right. Disc space is well-preserv ed. IMPRESSION: No evidence for acute fracture or malalignment.
[2023-07-15] MEDS ORDERED: ACET/COD 300 MG/30 MG STARTER PACK 6 TAB BTL PO STA (12:48)
[2023-07-15] MEDS ORDERED: methylPREDNISolone SOD SUCCI 125 MG/2 ML VIAL IV STA (12:48)
[2023-07-15 13:21] VITALS: BP 136/72; PULSE 72
== END 2023-07-15 13:13 | disposition home or self-care (01) ==
LOC: EC 10:38
DX: S39.012A Strain of muscle, fascia and tendon of lower back, initial encounter (principal); F17.200 Nicotine dependence, unspecified, uncomplicated; G47.30 Sleep apnea, unspecified; Z86.59 Personal history of other mental and behavioral disorders; X58.XXXA Exposure to other specified factors, initial encounter; Y99.0 Civilian activity done for income or pay
CPT/HCPCS: 72080; 72100; 99284; 96374; 96375; 96372; J2360; J1885; J1170

== ENCOUNTER 2023-11-18 15:12 | Emergency (ER) | payer OTHER ==
[2023-11-18 15:56] VITALS: RESP 18
--- NOTE | 2023-11-18 17:26 | ED ---
Back Pain HPI - General Chief Complaint: Back Pain/Injury Stated Complaint: Swelling in right leg Source: patient - History of Present Illness Initial Comments: The patient is a 43-year-old gentleman with history of obesity and lymphedema presents emergency room with complaints of lower back pain that started 2 weeks ago. Patient denies any falls or injuries. He believes that it could be from worsening lymphedema in the right leg and abnormal gait. Patient has experienced sciatica in the past however has never seen a store receiving specialist senior training specialist for back issues in the past. Patient denies any IV drug use. Denies any fever, sign seizure, loss of bowel or bladder control, foot drop or neurological symptoms. The pain is worse when he stands. The denies any previous back injuries. Patient states the swelling the right leg has worsened over the last several months. It sounds as though he had a superficila thrombophlebitis in the fall. denies any previous DVTs - Related Data Previous Rx's Medication Instructions Recorded Acetaminophen Tab [Tylenol] 650 mg PO Q6H #30 tab 03/09/23 Ibuprofen [Motrin] 600 mg PO Q6HR PRN #40 tab 03/09/23 Cyclobenzaprine [Flexeril] 10 mg PO TID PRN #15 tab 07/15/23 Ibuprofen [Motrin] 600 mg PO Q8HR PRN #20 tab 07/15/23 predniSONE 50 mg PO DAILY #5 tab 07/15/23 Cyclobenzaprine [Flexeril] 10 mg PO TID 5 Days #15 tab 11/18/23 HYDROcodone/APAP 10-325MG [[place]com 1 tab PO Q6HR PRN 3 Days #12 tab 11/18/23 10-325] Lidocaine 5% Patch [Lidoderm] 1 patch TOPICAL DAILY 14 Days #14 11/18/23 patch Allergies Allergy/AdvReac Type Severity Reaction Status Date / Time No Known Allergies Allergy Verified 11/18/23 15:40 Review of Systems ROS Statement: Those systems with pertinent positive or pertinent negative responses have been documented in the HPI. ROS Other: All systems not noted in ROS Statement are negative. Past Medical History Past Medical History: Sleep Apnea/CPAP/BIPAP Additional Past Medical History / Comment(s): hx covid x2, sleep apnea-unable to use machine, hx of cellulitis and lymphedema (8 months ago)., states currently right leg swelling- states 3 times the normal size for the last 3-4 weeks., states lump in groin on both sides. History of Any Multi-Drug Resistant Organisms: None Reported Past Surgical History: EPS, Hernia Repair, Orthopedic Surgery Additional Past Surgical History / Comment(s): nasal surgery as a child.,ORIF rt ankle, UMBILICAL HERNIA, biopsy of groin Past Anesthesia/Blood Transfusion Reactions: No Reported Reaction Past Psychological History: Anxiety Smoking Status: Current every day smoker Past Alcohol Use History: None Reported Past Drug Use History: None Reported - Past Family History Mother Family Medical History: Hypertension Brother(s) Family Medical History: Diabetes Mellitus, Hypertension Father Family Medical History: Diabetes Mellitus General Exam Limitations: no limitations General appearance: alert, in no apparent distress Head exam: Present: atraumatic Eye exam: Present: normal appearance, PERRL ENT exam: Present: normal exam Neck exam: Present: full ROM Respiratory exam: Present: normal lung sounds bilaterally Extremities exam: Present: pedal edema, joint swelling, other (Chronic bilateral lymphedema worse in the right lower extremity) Back exam: Present: full ROM, other (Pain midline lumbar spine without any erythema ecchymosis or rash noted. EHL intact bilaterally. neg straight leg test) Neurological exam: Present: alert, oriented X3, CN II-XII intact, normal gait Psychiatric exam: Present: normal affect, normal mood Skin exam: Present: warm Course Vital Signs 11/18/23 11/18/23 15:36 19:50 Temperature 98.7 F 98.2 F Pulse Rate 99 88 Respiratory 18 18 Rate Blood Pressure 106/68 174/57 O2 Sat by Pulse 94 L 99 Oximetry - Reevaluation(s) Reevaluation #1: 11/18/23 20:07 Pain improved with IM Dilaudid emergency room. He is neurologically intact. Denies any saddle anesthesia or loss of bowel or bladder control therefore no MRI was ordered at today's visit. I discussed treatment plan and follow-up with orthopedic store receiving specialist for possible outpatient MRI and physical therapy. We discussed signs return to the emergency room. The ultrasound of the right lower Margaret's negative for any DVT. There is some lymphadenopathy again seen on the computed tomography scan as previously seen from January 2023. I will give the patient follow-up with the surgeon Dr. Mcgrath who he saw last year. Patient understands his return for any foot drop, loss of bowel or bladder control, saddle anesthesia or other neurological symptoms. He understands he is not to work or trouble taking pain medication. Patient's symptoms workup and disposition were discussed with attending ED physician Dr. De León today. Medical Decision Making - Medical Decision Making Was pt. sent in by a medical professional or institution (, PA, MANAGER OF APPLICATIONS DEVELOPMENT, urgent care, hospital, or penitentiary...) When possible be specific @ -[No] Did you speak to anyone other than the patient for history (EMS, parent, family, police, friend...)? What history was obtained from this source @ -[No] Did you review nursing and triage notes (agree or disagree)? Why? @ -[I reviewed and agree with nursing and triage notes] Were old charts reviewed (outside hosp., previous admission, EMS record, old EKG, old radiological studies, urgent care reports/EKG's, penitentiary records)? Report findings @ ye old charts were reviewed] Differential Diagnosis (chest pain, altered mental status, abdominal pain women, abdominal pain men, vaginal bleeding, weakness, fever, dyspnea, syncope, headache, dizziness, GI bleed, back pain, seizure, CVA, palpatations, mental health, musculoskeletal)? @ back pain, back strain, sciatica, dvt, chronic lymphedema EKG interpreted by me (3pts min.). @ -[As above] X-rays interpreted by me (1pt min.). @ -[X-ray of the lumbar spine is negative for any fractures or significant degenerative changes. CT interpreted by me (1pt min.). @ -[None done] U/S interpreted by me (1pt. min.). @ -[Ultrasound shows right lymphadenopathy seen on previous computed tomography scan from 2022 as well. No DVT noted. What testing was considered but not performed or refused? (CT, X-rays, U/S, labs)? Why? @ -[None] What meds were considered but not given or refused? Why? @ -[None] Did you discuss the management of the patient with other professionals (professionals i.e. , PA, MANAGER OF APPLICATIONS DEVELOPMENT, lab, RT, psych nurse, neonatal social worker, pre sales network engineer, teacher, biosecurity officer, case reviewer)? Give summary @ -[No] Was smoking cessation discussed for >3mins.? @ -[No] Was critical care preformed (if so, how long)? @ -[No] Were there social determinants of health that impacted care today? How? (Homelessness, low income, unemployed, alcoholism, drug addiction, transportation, low edu. Level, literacy, decrease access to med. care, skilled nursing, rehab)? @ -[No] Was there de-escalation of care discussed even if they declined (Discuss DNR or withdrawal of care, Hospice)? DNR status @ -[No] What co-morbidities impacted this encounter? (DM, HTN, Smoking, COPD, CAD, Cancer, CVA, ARF, Chemo, Hep., AIDS, mental health diagnosis, sleep apnea, morbid obesity)? @ -[None] Was patient admitted / discharged? Hospital course, mention meds given and route, prescriptions, significant lab abnormalities, going to OR and other pertinent info. @ -Patient is neurologically intact. He denies any saddle anesthesia or loss of bowel or bladder control therefore no admission is required and no MRI was ordered at today's visit. Patient is to follow-up with senior training specialist for further management of pain in the back.) Possible outpatient MRI. I also spoke with him regarding follow-up with the surgeon for any worsening lymphedema that has since having the biopsy. We'll give the consult with the surgeon who did the biopsy. Patient understands signs return to emergency room. His symptoms are covenant disposition were discussed with attending ED physician Dr. De León today. Undiagnosed new problem with uncertain prognosis? @ -[No] Drug Therapy requiring intensive monitoring for toxicity (Heparin, Nitro, Insulin, Cardizem)? @ -[No] Were any procedures done? @ -[No] Diagnosis/symptom? @ -[Pain, worsening lymphedema Acute, or Chronic, or Acute on Chronic? @ -[Acute Uncomplicated (without systemic symptoms) or Complicated (systemic symptoms)? @ -[default] Side effects of treatment? @ -[No] Exacerbation, Progression, or Severe Exacerbation? @ -[No] Poses a threat to life or bodily function? How? (Chest pain, USA, PA, pneumonia, PE, COPD, DKA, ARF, appy, cholecystitis, CVA, Diverticulitis, Homicidal, Suicidal, threat to staff... and all critical care pts) @ -[No] - Radiology Data Radiology results: report reviewed, image reviewed Disposition Clinical Impression: Back pain, Back strain, Acquired lymphedema of leg Disposition: HOME SELF-CARE Condition: Good Instructions (If sedation given, give patient instructions): Acute Low Back Pain (ED), Low Back Strain (ED), Lymphadenopathy (ED), Leg Edema (ED), Lym phedema (ED) Additional Instructions: Do not work or drive while taking pain medication or muscle relaxer. do not take these medications at the same time. stagger the dosing. Is patient prescribed a controlled substance at d/c from ED?: Yes When asked, does pt state using other controlled substances?: No If prescribed controlled substance>3 days was MAPS reviewed?: Yes If opioid is for acute pain is fill amount 7 days or less?: No Referrals: Carlos Turk DO [Primary Care Provider] - 1-2 days Michael Browne MD [STAFF PHYSICIAN] - 1-2 days (ortho referral) Elbert Storm MD [STAFF PHYSICIAN] - 1-2 days (ortho referral ) Darrel Mcgrath MD [STAFF PHYSICIAN] - 1-2 days (surgery referral ) Time of Disposition: 20:12
[2023-11-18] MEDS: HYDROmorphone 1 MG/ML 1 ML SYRINGE IM STA (17:47)
--- NOTE | 2023-11-18 18:41 | XR ---
PROCEDURE: XR lumbar spine 2 or 3V - 3V DATE AND TIME: 11/18/2023 5:51 PM CLINICAL INDICATION: PHH; pain TECHNIQUE: Department protocol COMPARISON: None FINDINGS: There is mild straightening of the lumbar spine. There is no fracture or malalignment. IMPRESSION: No definite acute process.
--- NOTE | 2023-11-18 19:51 | US ---
EXAMINATION TYPE: US venous doppler duplex LE RT DATE OF EXAM: 11/18/2023 6:48 PM COMPARISON: US 04/10/[address] 02/17/2023 CLINICAL INDICATION: Male, 43 years old with history of pain; pain in lower back and right leg. Hx of lymph node surgically removed last summer. No hx of DVT. Not on blood thinners SIDE PERFORMED: Right TECHNIQUE: The lower extremity deep venous system is examined utilizing real time linear array sonog leti with graded compression, doppler sonography and color-flow sonography. VESSELS IMAGED: Common Femoral Vein Deep Femoral Vein Greater Saphenous Vein * Femoral Vein Popliteal Vein Small Saphenous Vein * Proximal Calf Veins (* superficial vessels) RIGHT LOWER EXTREMITY FINDINGS: Limited visualization due to body habitus. Grayscale, color doppler, spectral doppler imaging performed of the deep veins of the right lower ext remity. There is normal flow, compressibility, and vascular waveforms. Hypoechoic area seen in right inguinal region measuring 6.0 cm CC x 4.7 cm TV x 1.4 AP cm, likely rgecia nopathy; this was seen on CT 02/17/2023. IMPRESSION: Negative for DVT, right lower extremity. Right inguinal finding for which palpation correlation is requested.
[2023-11-18 20:11] VITALS: BP 174/57; PULSE 88; TEMP 98.2
== END 2023-11-18 20:27 | disposition home or self-care (01) ==
LOC: EC 15:12
DX: S39.012A Strain of muscle, fascia and tendon of lower back, initial encounter (principal); I89.0 Lymphedema, not elsewhere classified; G47.30 Sleep apnea, unspecified; F17.200 Nicotine dependence, unspecified, uncomplicated; Z86.59 Personal history of other mental and behavioral disorders; X58.XXXA Exposure to other specified factors, initial encounter
CPT/HCPCS: 99284; 96372; 72100; 93971; J1170

== ENCOUNTER 2024-01-22 20:18 | Emergency (ER) | payer OTHER ==
[2024-01-22 21:52] LABS: Basophils # (A) 0.1 k/uL (0-0.2); Basophils % (A) 1 %; Eosinophils # (A) 0.4 k/uL (0-0.7); Eosinophils % (A) 3 %; HCT 42.4 % (39.0-53.0); HGB 13.8 gm/dL (13.0-17.5); Lymphocytes # (A) 2.8 k/uL (1.0-4.8); Lymphocytes % (A) 22 %; MCH 27.4 pg (25.0-35.0); MCHC 32.7 g/dL (31.0-37.0); Mean Platelet Volume 7.2; Monocytes # (A) 0.7 k/uL (0-1.0); Monocytes % (A) 5 %; Neutrophils # (A) 8.9 k/uL (1.3-7.7); Neutrophils % (A) 68 %; Platelet Count 358 k/uL (150-450); RBC 5.05 m/uL (4.30-5.90); RDW 14.7 % (11.5-15.5); WBC 13.1 k/uL (3.8-10.6)
[2024-01-22 22:03] LABS: ALT 49 U/L (4-49); AST 46 U/L (17-59); African American GFR (CKD) >90 (>60 ml/min/1.73 sqM); Albumin 4.1 g/dL (3.5-5.0); Alkaline Phosphatase 81 U/L (38-126); Anion Gap 8 mmol/L; Blood Urea Nitrogen 16 mg/dL (9-20); Calcium 9.3 mg/dL (8.4-10.2); Carbon Dioxide 28 mmol/L (22-30); Chloride 104 mmol/L (98-107); Glucose 122 mg/dL (74-99); Non-African American GFR(CKD) >90 (>60 ml/min/1.73 sqM); Potassium 4.1 mmol/L (3.5-5.1); Sodium 140 mmol/L (137-145); Total Bilirubin 0.4 mg/dL (0.2-1.3); Total Protein 7.7 g/dL (6.3-8.2)
[2024-01-22] MEDS ORDERED: cefTRIAXone IN SWFI 1,000 MG/10 ML SYRINGE IVP STA (22:59)
--- NOTE | 2024-01-22 23:02 | ED ---
Extremity Problem HPI - General Chief complaint: Extremity Problem,Nontraumatic Stated complaint: rt leg infection Time Seen by Provider: 01/22/24 21:26 Source: patient Mode of arrival: ambulatory Limitations: no limitations - History of Present Illness Initial comments: 43-year-old male presenting with concern for infection to the right lower leg. Patient has history of lipedema. He was recently admitted at [facility] for cellulitis for 2 days, he was discharged on Keflex. States that last night he started having increasing pain and some redness to the right lower extremity. He is concerned that the oral antibiotics are not working. No injury or trauma. No fevers or chills. No nausea or vomiting. - Related Data Previous Rx's Medication Instructions Recorded Acetaminophen Tab [Tylenol] 650 mg PO Q6H #30 tab 03/09/23 Ibuprofen [Motrin] 600 mg PO Q6HR PRN #40 tab 03/09/23 Cyclobenzaprine [Flexeril] 10 mg PO TID PRN #15 tab 07/15/23 Ibuprofen [Motrin] 600 mg PO Q8HR PRN #20 tab 07/15/23 predniSONE 50 mg PO DAILY #5 tab 07/15/23 Cyclobenzaprine [Flexeril] 10 mg PO TID 5 Days #15 tab 11/18/23 HYDROcodone/APAP 10-325MG [[place] 1 tab PO Q6HR PRN 3 Days #12 tab 11/18/23 10-325] Lidocaine 5% Patch [Lidoderm] 1 patch TOPICAL DAILY 14 Days #14 11/18/23 patch Clindamycin [Cleocin] 450 mg PO TID 7 Days #63 cap 01/22/24 Allergies Allergy/AdvReac Type Severity Reaction Status Date / Time No Known Allergies Allergy Verified 11/18/23 15:40 Review of Systems ROS Statement: Those systems with pertinent positive or pertinent negative responses have been documented in the HPI. ROS Other: All systems not noted in ROS Statement are negative. Past Medical History Past Medical History: Sleep Apnea/CPAP/BIPAP Additional Past Medical History / Comment(s): hx covid x2, sleep apnea-unable to use machine, hx of cellulitis and lymphedema (8 months ago)., states currently right leg swelling- states 3 times the normal size for the last 3-4 weeks., states lump in groin on both sides. History of Any Multi-Drug Resistant Organisms: None Reported Past Surgical History: EPS, Hernia Repair, Orthopedic Surgery Additional Past Surgical History / Comment(s): nasal surgery as a child.,ORIF rt ankle, UMBILICAL HERNIA, biopsy of groin Past Anesthesia/Blood Transfusion Reactions: No Reported Reaction Past Psychological History: Anxiety Smoking Status: Current every day smoker Past Alcohol Use History: None Reported Past Drug Use History: None Reported - Past Family History Mother Family Medical History: Hypertension Brother(s) Family Medical History: Diabetes Mellitus, Hypertension Father Family Medical History: Diabetes Mellitus General Exam Limitations: no limitations General appearance: alert, in no apparent distress Head exam: Present: atraumatic, normocephalic Eye exam: Present: normal appearance, EOMI Neck exam: Present: normal inspection. Absent: meningismus Respiratory exam: Present: normal lung sounds bilaterally. Absent: respiratory distress, wheezes, rales, rhonchi, stridor Cardiovascular Exam: Present: regular rate, normal rhythm, normal heart sounds. Absent: systolic murmur, diastolic murmur, rubs, gallop, clicks Right Lower Leg exam: Present: tenderness, swelling, erythema (Very mild erythema, no excessive warmth). Absent: Homans' sign Neurological exam: Present: alert, oriented X3 Psychiatric exam: Present: normal affect, normal mood Skin exam: Present: intact Course Vital Signs 01/22/24 01/22/24 01/22/24 20:22 22:26 23:22 Temperature 97.8 F 97.8 F 98.0 F Pulse Rate 107 H 86 95 Respiratory 18 18 20 Rate Blood Pressure 128/83 133/63 104/76 O2 Sat by Pulse 97 97 96 Oximetry Medical Decision Making - Medical Decision Making Was pt. sent in by a medical professional or institution (, PA, LOAD TESTER, urgent care, hospital, or fpc...) When possible be specific @ -No Did you speak to anyone other than the patient for history (EMS, parent, family, police, friend...)? What history was obtained from this source @ -No Did you review nursing and triage notes (agree or disagree)? Why? @ -I reviewed and agree with nursing and triage notes Were old charts reviewed (outside hosp., previous admission, EMS record, old EKG, old radiological studies, urgent care reports/EKG's, fpc records)? Report findings @ -No old charts were reviewed Differential Diagnosis (chest pain, altered mental status, abdominal pain women, abdominal pain men, vaginal bleeding, weakness, fever, dyspnea, syncope, headache, dizziness, GI bleed, back pain, seizure, CVA, palpatations, mental health, musculoskeletal)? @ -Differential Musculoskeletal Muscular strain, contusion, ligament sprain, fracture, arthritis, septic arthritis, bursitis, cellulitis, muscle spasm, nerve compression, DVT, arterial occlusion, herpes zoster, electrolyte abnormality, tumor.... This is not meant to be in all inclusive list EKG interpreted by me (3pts min.). @ -As above X-rays interpreted by me (1pt min.). @ -None done CT interpreted by me (1pt min.). @ -None done U/S interpreted by me (1pt. min.). @ -None done What testing was considered but not performed or refused? (CT, X-rays, U/S, labs)? Why? @ -None What meds were considered but not given or refused? Why? @ -None Did you discuss the management of the patient with other professionals (professionals i.e. , PA, LOAD TESTER, lab, RT, psych nurse, social welfare administrator, hide or skin buffer, teacher, nuclear officer, special education case manager)? Give summary @ -No Was smoking cessation discussed for >3mins.? @ -No Was critical care preformed (if so, how long)? @ -No Were there social determinants of health that impacted care today? How? (Homelessness, low income, unemployed, alcoholism, drug addiction, transportation, low edu. Level, literacy, decrease access to med. care, penitentiary, rehab)? @ -No Was there de-escalation of care discussed even if they declined (Discuss DNR or withdrawal of care, Hospice)? DNR status @ -No What co-morbidities impacted this encounter? (DM, HTN, Smoking, COPD, CAD, Cancer, CVA, ARF, Chemo, Hep., AIDS, mental health diagnosis, sleep apnea, morbid obesity)? @ -None Was patient admitted / discharged? Hospital course, mention meds given and route, prescriptions, significant lab abnormalities, going to OR and other pertinent info. @ -43-year-old with history of lipedema presenting with concerns for infection to the right lower leg. He was recently admitted at [facility] for IV antibiotics and is currently on Keflex. On exam there is swelling consistent with his lipedema present to the right lower extremity. There is no excessive warmth. Very mild redness. Labs are obtained which shows WBC 13.1. Patient's antibiotic will be switched from Keflex to clindamycin. He is instructed to follow-up with his PCP. Discharged home. Follow-up with PCP. Report back to ER with any new or worsening symptoms. Discussed return par ameters and answered all questions. Patient conveyed verbal understanding and agreed to the plan. I discussed this case in detail with my attending Dr. Harrison Undiagnosed new problem with uncertain prognosis? @ -No Drug Therapy requiring intensive monitoring for toxicity (Heparin, Nitro, Insulin, Cardizem)? @ -No Were any procedures done? @ -No Diagnosis/symptom? @ -Cellulitis Acute, or Chronic, or Acute on Chronic? @ -Acute Uncomplicated (without systemic symptoms) or Complicated (systemic symptoms)? @ -Uncomplicated Side effects of treatment? @ -No Exacerbation, Progression, or Severe Exacerbation? @ -No Poses a threat to life or bodily function? How? (Chest pain, [place], [place], pneumonia, PE, COPD, DKA, ARF, appy, cholecystitis, CVA, Diverticulitis, Homicidal, Suicidal, threat to staff... and all critical care pts) @ -Low likelihood - Lab Data Result diagrams: 01/22/24 20:59 01/22/24 20:59 Lab Results 01/22/24 01/22/24 Range/Units 20:59 20:59 WBC 13.1 H (3.8-10.6) k/uL RBC 5.05 (4.30-5.90) m/uL Hgb 13.8 (13.0-17.5) gm/dL Hct 42.4 (39.0-53.0) % MCV 84.0 (80.0-100.0) fL MCH 27.4 (25.0-35.0) pg MCHC 32.7 (31.0-37.0) g/dL RDW 14.7 (11.5-15.5) % Plt Count 358 (150-450) k/uL MPV 7.2 Neutrophils % 68 % Lymphocytes % 22 % Monocytes % 5 % Eosinophils % 3 % Basophils % 1 % Neutrophils # 8.9 H (1.3-7.7) k/uL Lymphocytes # 2.8 (1.0-4.8) k/uL Monocytes # 0.7 (0-1.0) k/uL Eosinophils # 0.4 (0-0.7) k/uL Basophils # 0.1 (0-0.2) k/uL Sodium 140 (137-145) mmol/L Potassium 4.1 (3.5-5.1) mmol/L Chloride 104 (98-107) mmol/L Carbon Dioxide 28 (22-30) mmol/L Anion Gap 8 mmol/L BUN 16 (9-20) mg/dL Creatinine 0.72 (0.66-1.25) mg/dL Est GFR (CKD-EPI)AfAm >90 (>60 ml/min/1.73 sqM) Est GFR (CKD-EPI)NonAf >90 (>60 ml/min/1.73 sqM) Glucose 122 H (74-99) mg/dL Calcium 9.3 (8.4-10.2) mg/dL Total Bilirubin 0.4 (0.2-1.3) mg/dL AST 46 (17-59) U/L ALT 49 (4-49) U/L Alkaline Phosphatase 81 (38-126) U/L Total Protein 7.7 (6.3-8.2) g/dL Albumin 4.1 (3.5-5.0) g/dL Disposition Clinical Impression: Cellulitis Disposition: HOME SELF-CARE Condition: Fair Instructions (If sedation given, give patient instructions): Cellulitis (ED) Additional Instructions: Follow-up with PCP. Report back to ER with any new or worsening symptoms. Prescriptions: Clindamycin [Cleocin] 450 mg PO TID 7 Days #63 cap Is patient prescribed a controlled substance at d/c from ED?: No Referrals: Carlos Turk DO [Primary Care Provider] - 1-2 days Time of Disposition: 23:01
[2024-01-22] MEDS: cefTRIAXone 1,000 MG VIAL (IM USE) IM STA (23:24)
[2024-01-22 23:28] VITALS: BP 104/76; PULSE 95; RESP 20; TEMP 98
== END 2024-01-22 23:56 | disposition home or self-care (01) ==
LOC: EC 20:18
DX: L03.115 Cellulitis of right lower limb (principal); F17.200 Nicotine dependence, unspecified, uncomplicated
CPT/HCPCS: 99283 ×2; 96374; 96372 ×2; 36415; 80053; 85025; J0696

== ENCOUNTER → 2024-03-21 | Outpatient (CLI) | payer OTHER ==
--- NOTE | 2024-03-21 16:07 | XR ---
EXAMINATION TYPE: XR Hip Complete RT DATE OF EXAM: 03/21/2024 2:54 PM CLINICAL INDICATION:Male, 44 years old with history of pain; COMPARISON: None. TECHNIQUE: XR Hip Complete RT; hip was examined in the frontal and lateral projections and a AP pelvi s. FINDINGS: No evidence for acute process, joint dislocation or significant soft tissue swelling. Osteo phyte formation of the superior acetabulum of the hip. There is mild joint space narrowing. IMPRESSION: 1. No evidence for acute process. 2. Mild hip osteoarthrosis.
--- NOTE | 2024-03-21 16:07 | XR ---
EXAMINATION TYPE: XR lumbar spine 2 or 3V DATE OF EXAM: 03/21/2024 2:54 PM CLINICAL INDICATION:Male, 44 years old with history of M25.551 PAIN IN RIGHT HIP; COMPARISON: 11/18/2023 TECHNIQUE: XR lumbar spine 2 or 3V - Frontal, lateral and coned in L5-S1 lateral views of the spine. FINDINGS: No evidence of any acute osseous pathology. Vertebral body biconcave deformities throughout the visualized spine.. Scattered disc space narrowing. Multilevel marginal osteophyte formation thro ughout the visualized spine. There is facet joint arthropathy throughout the spine. Scattered at leas t mild neural foraminal stenosis. Findings are worse at T11-T12 adjoining endplates disc spacing and osteophyte formation. Confusion the posterior arch of L5. IMPRESSION: 1. No acute fracture. 2. Degeneration changes worse at mastectomy T11-T12 on lateral imaging. Findings not significantly ch anged from prior.
== END | disposition home or self-care (01) ==
LOC: RADXRMAIN 14:02
PROVIDERS: ATTEND Family Medicine
DX: M16.11 Unilateral primary osteoarthritis, right hip (principal); M51.36 Other intervertebral disc degeneration, lumbar region
CPT/HCPCS: 72100; 73502

== ENCOUNTER 2024-05-23 19:56 | Emergency (ER) | payer OTHER ==
[2024-05-23 20:06] VITALS: RESP 20; TEMP 97.9
--- NOTE | 2024-05-23 20:16 | ED ---
Extremity Problem HPI - General Source: patient, RN notes reviewed Mode of arrival: ambulatory Limitations: no limitations - History of Present Illness MD Complaint: extremity pain, extremity swelling <Pita Porter - Last Filed: 05/23/24 20:15> <Marva Wilson - Last Filed: 05/23/24 23:23> - General Chief complaint: Skin/Abscess/Foreign Body Stated complaint: R Foot Burning Time Seen by Provider: 05/23/24 20:10 - History of Present Illness Initial comments: Quick Note: This is a 44-year-old male who presents to the emergency department for right foot pain. Patient has a history of lymphedema and often gets bouts of cellulitis. For the last week he has had pain, burning, and increasing redness/swelling to the right foot and is concerned about another infection. He has not measured any fevers but does occasionally get chills. (Pita Porter) 44-year-old male presenting chief complaint of right foot pain. Patient has history of lymphedema and recurrent cellulitis. He has had increasing redness and burning pain to the right foot. No new injury or trauma. No fevers. No discharge. No nausea or vomiting. Try to get in with his PCP about was unable to get in for a few days. (Marva Wilson) - Related Data Previous Rx's Medication Instructions Recorded Acetaminophen Tab [Tylenol] 650 mg PO Q6H #30 tab 03/09/23 Ibuprofen [Motrin] 600 mg PO Q6HR PRN #40 tab 03/09/23 Cyclobenzaprine [Flexeril] 10 mg PO TID PRN #15 tab 07/15/23 Ibuprofen [Motrin] 600 mg PO Q8HR PRN #20 tab 07/15/23 predniSONE 50 mg PO DAILY #5 tab 07/15/23 Cyclobenzaprine [Flexeril] 10 mg PO TID 5 Days #15 tab 11/18/23 HYDROcodone/APAP 10-325MG [[place] 1 tab PO Q6HR PRN 3 Days #12 tab 11/18/23 10-325] Lidocaine 5% Patch [Lidoderm] 1 patch TOPICAL DAILY 14 Days #14 11/18/23 patch Clindamycin [Cleocin] 450 mg PO TID 7 Days #63 cap 01/22/24 Cephalexin [Keflex] 500 mg PO Q6HR 7 Days #28 cap 05/23/24 Allergies Allergy/AdvReac Type Severity Reaction Status Date / Time No Known Allergies Allergy Verified 05/23/24 20:06 Review of Systems ROS Other: All systems not noted in ROS Statement are negative. <Pita Porter - Last Filed: 05/23/24 20:15> ROS Other: All systems not noted in ROS Statement are negative. <Marva Wilson - Last Filed: 05/23/24 23:23> ROS Statement: Those systems with pertinent positive or pertinent negative responses have been documented in the HPI. Past Medical History Past Medical History: Sleep Apnea/CPAP/BIPAP Additional Past Medical History / Comment(s): hx covid x2, sleep apnea-unable to use machine, hx of cellulitis and lymphedema (8 months ago)., states currently right leg swelling- states 3 times the normal size for the last 3-4 weeks., states lump in groin on both sides. History of Any Multi-Drug Resistant Organisms: None Reported Past Surgical History: EPS, Hernia Repair, Orthopedic Surgery Additional Past Surgical History / Comment(s): nasal surgery as a child.,ORIF rt ankle, UMBILICAL HERNIA, biopsy of groin Past Anesthesia/Blood Transfusion Reactions: No Reported Reaction Past Psychological History: Anxiety Smoking Status: Current every day smoker Past Alcohol Use History: None Reported, Rare Past Drug Use History: None Reported - Past Family History Mother Family Medical History: Hypertension Brother(s) Family Medical History: Diabetes Mellitus, Hypertension Father Family Medical History: Diabetes Mellitus <Pita Porter - Last Filed: 05/23/24 20:15> General Exam Limitations: no limitations <Pita Porter - Last Filed: 05/23/24 20:15> Limitations: no limitations General appearance: alert, in no apparent distress Head exam: Present: atraumatic, normocephalic Eye exam: Present: normal appearance, EOMI Neck exam: Present: normal inspection. Absent: meningismus Respiratory exam: Absent: respiratory distress Cardiovascular Exam: Present: regular rate Extremities exam: Present: pedal edema (Patient does have significant swelling to the right lower leg which is consistent with his baseline) Neurological exam: Present: alert, oriented X3 Psychiatric exam: Present: normal affect, normal mood Skin exam: Present: erythema (There are some mild erythema to the right lower leg) <Marva Wilson - Last Filed: 05/23/24 23:23> - General Exam Comments Initial Comments: Visual Physical Exam Vital signs reviewed General: Well-appearing, nontoxic, no acute distress. Head: Normocephalic, atraumatic Eyes: PERRLA, EOMI ENT: Airway patent Chest: Nonlabored breathing Skin: No visual rash, normal skin tone Neuro: Alert and oriented 3 Musculoskeletal: No gross abnormalities (Pita Porter) Course Vital Signs 05/23/24 05/23/24 20:02 21:15 Temperature 97.9 F Pulse Rate 108 H 89 Respiratory 20 20 Rate Blood Pressure 119/74 155/80 O2 Sat by Pulse 98 97 Oximetry Medical Decision Making <Pita Porter - Last Filed: 05/23/24 20:15> - Lab Data Result diagrams: 05/23/24 20:30 05/23/24 20:30 <Marva Wilson - Last Filed: 05/23/24 23:23> - Medical Decision Making I performed the QuickNote portion of this chart. Signed Pita Porter PA-C. (Pita Porter) Was pt. sent in by a medical professional or institution (ERUM Jenkins, GRAIN OPERATIONS MANAGER, urgent care, hospital, or fpc...) When possible be specific @ -No Did you speak to anyone other than the patient for history (EMS, parent, family, police, friend...)? What history was obtained from this source @ -No Did you review nursing and triage notes (agree or disagree)? Why? @ -I reviewed and agree with nursing and triage notes Were old charts reviewed (outside hosp., previous admission, EMS record, old EKG, old radiological studies, urgent care reports/EKG's, fpc records)? Report findings @ -No old charts were reviewed Differential Diagnosis (chest pain, altered mental status, abdominal pain women, abdominal pain men, vaginal bleeding, weakness, fever, dyspnea, syncope, headache, dizziness, GI bleed, back pain, seizure, CVA, palpatations, mental health, musculoskeletal)? @ -Differential includes cellulitis, allergic reaction, pressure dependent redness, this is not an all-inclusive list EKG interpreted by me (3pts min.). @ -As above X-rays interpreted by me (1pt min.). @ -X-ray shows no acute osseous abnormality. Plantar heel spur. Flattening of the plantar arch. CT interpreted by me (1pt min.). @ -None done U/S interpreted by me (1pt. min.). @ -None done What testing was considered but not performed or refused? (CT, X-rays, U/S, labs)? Why? @ -None What meds were considered but not given or refused? Why? @ -None Did you discuss the management of the patient with other professionals (professionals i.e. Dr., PA, GRAIN OPERATIONS MANAGER, lab, RT, psych nurse, sr. social media & mobile manager, printer technician, teacher, aoc director combat plans officer, wrapper caser)? Give summary @ -No Was smoking cessation discussed for >3mins.? @ -No Was critical care preformed (if so, how long)? @ -No Were there social determinants of health that impacted care today? How? (Homelessness, low income, unemployed, alcoholism, drug addiction, transportation, low edu. Level, literacy, decrease access to med. care, senior living, rehab)? @ -No Was there de-escalation of care discussed even if they declined (Discuss DNR or withdrawal of care, Hospice)? DNR status @ -No What co-morbidities impacted this encounter? (DM, HTN, Smoking, COPD, CAD, Cancer, CVA, ARF, Chemo, Hep., AIDS, mental health diagnosis, sleep apnea, morbid obesity)? @ -None Was patient admitted / discharged? Hospital course, mention meds given and route, prescriptions, significant lab abnormalities, going to OR and other pertinent info. @ -44-year-old male with chief complaint of pain and redness to the right lower leg. History of lipedema. On exam there is some minimal redness and some tenderness. Labs show mildly elevated white count of 11.6 and elevated CRP of 2.2. No acute osseous abnormality on x-ray X-ray shows no acute osseous abnormality. Plantar heel spur. Flattening of the plantar arch. Patient will be treated for cellulitis with Keflex. Educated on wound care and return parameters. Discharged. Follow-up with PCP. Report back to ER with any new or worsening symptoms. Discussed return parameters and answered all questions. Patient conveyed verbal understanding and agreed to the plan. I discussed this case in detail with my attending Dr. Jules Undiagnosed new problem with uncertain prognosis? @ -No Drug Therapy requiring intensive monitoring for toxicity (Heparin, Nitro, Insulin, Cardizem)? @ -No Were any procedures done? @ -No Diagnosis/symptom? @ -Cellulitis Acute, or Chronic, or Acute on Chronic? @ -Acute Uncomplicated (without systemic symptoms) or Complicated (systemic symptoms)? @ -Uncomplicated Side effects of treatment? @ -No Exacerbation, Progression, or Severe Exacerbation? @ -No Poses a threat to life or bodily function? How? (Chest pain, [place], [place], pneumonia, PE, COPD, DKA, ARF, appy, cholecystitis, CVA, Diverticulitis, Homicidal, Suicidal, threat to staff... and all critical care pts) @ -Potential if not treated properly (Marva Wilson) - Lab Data Lab Results 05/23/24 05/23/24 05/23/24 Range/Units 20:30 20:30 20:30 WBC 11.6 H (3.8-10.6) k/uL RBC 4.67 (4.30-5.90) m/uL Hgb 12.9 L (13.0-17.5) gm/dL Hct 40.2 (39.0-53.0) % MCV 85.9 (80.0-100.0) fL MCH 27.7 (25.0-35.0) pg MCHC 32.2 (31.0-37.0) g/dL RDW 15.2 (11.5-15.5) % Plt Count 274 (150-450) k/uL MPV 7.4 Neutrophils % 71 % Lymphocytes % 20 % Monocytes % 5 % Eosinophils % 3 % Basophils % 0 % Neutrophils # 8.2 H (1.3-7.7) k/uL Lymphocytes # 2.3 (1.0-4.8) k/uL Monocytes # 0.5 (0-1.0) k/uL Eosinophils # 0.3 (0-0.7) k/uL Basophils # 0.1 (0-0.2) k/uL Sodium 138 (137-145) mmol/L Potassium 4.0 (3.5-5.1) mmol/L Chloride 105 (98-107) mmol/L Carbon Dioxide 29 (22-30) mmol/L Anion Gap 4 mmol/L BUN 11 (9-20) mg/dL Creatinine 0.69 (0.66-1.25) mg/dL Est GFR (CKD-EPI)AfAm >90 (>60 ml/min/1.73 sqM) Est GFR (CKD-EPI)NonAf >90 (>60 ml/min/1.73 sqM) Glucose 186 H (74-99) mg/dL Plasma Lactic Acid Gurjit 1.6 (0.7-2.0) mmol/L Calcium 9.7 (8.4-10.2) mg/dL Total Bilirubin 0.3 (0.2-1.3) mg/dL AST 61 H (17-59) U/L ALT 102 H (4-49) U/L Alkaline Phosphatase 79 (38-126) U/L C-Reactive Protein 2.2 H (<1.0) mg/dL Total Protein 7.1 (6.3-8.2) g/dL Albumin 3.8 (3.5-5.0) g/dL Disposition <Pita Porter - Last Filed: 05/23/24 20:15> Is patient prescribed a controlled substance at d/c from ED?: No Time of Disposition: 22:17 <Marva Wilson - Last Filed: 05/23/24 23:23> Clinical Impression: Cellulitis Disposition: HOME SELF-CARE Condition: Good Instructions (If sedation given, give patient instructions): Cellulitis (ED) Additional Instructions: Follow-up with PCP. Report back to ER with any new or worsening symptoms Prescriptions: Cephalexin [Keflex] 500 mg PO Q6HR 7 Days #28 cap Referrals: Carlos Turk DO [Primary Care Provider] - 1-2 days
[2024-05-23 20:42] LABS: Basophils # (A) 0.1 k/uL (0-0.2); Basophils % (A) 0 %; Eosinophils # (A) 0.3 k/uL (0-0.7); Eosinophils % (A) 3 %; HCT 40.2 % (39.0-53.0); HGB 12.9 gm/dL (13.0-17.5); Lymphocytes # (A) 2.3 k/uL (1.0-4.8); Lymphocytes % (A) 20 %; MCH 27.7 pg (25.0-35.0); MCHC 32.2 g/dL (31.0-37.0); MCV 85.9 fL (80.0-100.0); Mean Platelet Volume 7.4; Monocytes # (A) 0.5 k/uL (0-1.0); Monocytes % (A) 5 %; Neutrophils # (A) 8.2 k/uL (1.3-7.7); Neutrophils % (A) 71 %; Platelet Count 274 k/uL (150-450); RBC 4.67 m/uL (4.30-5.90); RDW 15.2 % (11.5-15.5); WBC 11.6 k/uL (3.8-10.6)
[2024-05-23 20:55] LABS: ALT 102 U/L (4-49); AST 61 U/L (17-59); African American GFR (CKD) >90 (>60 ml/min/1.73 sqM); Albumin 3.8 g/dL (3.5-5.0); Alkaline Phosphatase 79 U/L (38-126); Anion Gap 4 mmol/L; Blood Urea Nitrogen 11 mg/dL (9-20); C Reactive Protein 2.2 mg/dL (<1.0); Calcium 9.7 mg/dL (8.4-10.2); Carbon Dioxide 29 mmol/L (22-30); Chloride 105 mmol/L (98-107); Glucose 186 mg/dL (74-99); Non-African American GFR(CKD) >90 (>60 ml/min/1.73 sqM); Sodium 138 mmol/L (137-145); Total Bilirubin 0.3 mg/dL (0.2-1.3); Total Protein 7.1 g/dL (6.3-8.2)
--- NOTE | 2024-05-23 21:06 | XR ---
EXAMINATION TYPE: XR foot complete RT DATE OF EXAM: 05/23/2024 COMPARISON: None HISTORY: Right foot complaints TECHNIQUE: 3 view right foot FINDINGS: Very prominent soft tissues are present. Some swelling is not excluded along the lateral as pect of the right foot. Joint space appear preserved. No acute osseous abnormality. Plantar calcaneal heel spur is present. T here is flattening of the plantar arch. Follow up exams can be performed 7-10 days from acute trauma for continued pain. IMPRESSION: 1. No acute osseous abnormality. 2. Plantar heel spur. 3. Flattening of the plantar arch.
[2024-05-23] MEDS ORDERED: KETOROLAC 15 MG/ML 1 ML VIAL IVP STA (22:18)
[2024-05-23] MEDS: CEPHALEXIN 500MG STARTER PACK 4 CAP BTL PO STA (23:26)
[2024-05-23] MEDS: KETOROLAC 15 MG/ML 1 ML VIAL IM STA (23:29)
[2024-05-23 23:31] VITALS: BP 135/97; PULSE 83
[2024-05-24 03:30] LABS: Erythrocyte Sedimentation Rate 51 mm/Hr (0-15)
== END 2024-05-23 23:34 | disposition home or self-care (01) ==
LOC: EC 19:56
CPT/HCPCS: 36415; 80053; 83605; 85025; 85652; 86140; 96372; 99283

== ENCOUNTER → 2024-11-28 | Outpatient (CLI) | payer OTHER | LOC: CPPFTMAIN 08:21 | PROVIDERS: ATTEND Family Medicine | DX: R06.00 Dyspnea, unspecified (principal); F17.210 Nicotine dependence, cigarettes, uncomplicated; F12.90 Cannabis use, unspecified, uncomplicated | CPT/HCPCS: 94060; 94726; 94729 ==